=== PATIENT | male | born 1955 | race American Indian/Alaskan Native ===

== ENCOUNTER 2021-08-31 12:32 | Inpatient (IN) | payer SELFPAY ==
[2021-08-31 13:07] LABS: Hematocrit 46.3 % (35.5-45.6); Hemoglobin 15.1 gm/dl (11.8-15.2); Mean Corpuscular HGB Conc 33 % (32-34); Mean Corpuscular Volume 82 fl (84-94); Platelet Count 291 K/mm3 (140-440); Red Blood Count 5.62 M/mm3 (3.65-5.03); Red Cell Distribution Width 15.1 % (13.2-15.2)
--- NOTE | 2021-08-31 13:18 | XRay Report ---
CHEST 2 VIEWS INDICATION / CLINICAL INFORMATION: weakiness. COMPARISON: None available. FINDINGS: SUPPORT DEVICES: None. HEART / MEDIASTINUM: No significant abnormality. LUNGS / PLEURA: Increased interstitial prominence and densities in bilateral lungs without focal cons olidation No pneumothorax. ADDITIONAL FINDINGS: No significant additional findings. IMPRESSION: 1. Increased interstitial prominence could represent interstitial infiltrates in bilateral lungs Signer Name: John Rowley MD Signed: 08/31/2021 1:14 PM Workstation Name: [id number]
[2021-08-31 13:34] LABS: Alanine Aminotransferase 12 units/L (7-56); Albumin 4.7 g/dL (3.9-5); BUN/Creatinine Ratio 7; Blood Urea Nitrogen 11 mg/dL (9-20); Calcium 9.6 mg/dL (8.4-10.2); Hemolysis Index 2
--- NOTE | 2021-08-31 14:21 | Cat Scan Report ---
CT HEAD WITHOUT CONTRAST INDICATION / CLINICAL INFORMATION: unilateral weakness. TECHNIQUE: Axial imaging performed from the skull apex through the skull base without the use of cont rast. Sagittal and coronal reformatted images. All CT scans at this location are performed using CT dose reduction for ALARA by means of automated exposure control. COMPARISON: None available. FINDINGS: CEREBRAL PARENCHYMA: No acute parenchymal abnormality is detected. There is mild cortical volume loss and mild to moderate nonspecific chronic white matter changes. Chronic infarct in the right posterio r watershed region measures up to 3 cm in greatest dimension. A smaller 1.8 cm cortical infarct is id entified in the medial left parietal lobe. A 2 cm chronic cortical infarct is identified in the super ior right frontal lobe. Tiny chronic lacunar infarcts are identified in the right thalamus and right jovanny. HEMORRHAGE: None. EXTRA-AXIAL SPACES: Normal in size and morphology for the patient's age. VENTRICULAR SYSTEM: Normal in size and morphology for the patient's age. MIDLINE SHIFT OR HERNIATION: None. CEREBELLUM / BRAINSTEM: No significant abnormality. CALVARIUM: No significant abnormality. ORBITS: Normal as visualized. PARANASAL SINUSES / MASTOID AIR CELLS: Normal as visualized. SOFT TISSUES of HEAD: No significant abnormality. ADDITIONAL FINDINGS: None. IMPRESSION: No acute intracranial abnormality. Chronic findings as described above. Signer Name: Cayetano Larios Jr, MD Signed: 08/31/2021 2:16 PM Workstation Name: [id number]
[2021-08-31] MEDS ORDERED: CLOPIDOGREL 300 MG TAB PO ONE (15:50)
--- NOTE | 2021-08-31 15:57 | Emergency Department Report ---
HPI - General Chief Complaint: Neuro Symptoms/Deficit Time Seen by Provider: 08/31/21 15:44 - HPI HPI: [facility] The patient is a six 66-year-old male present with a chief complaint of left- sided weakness. The patient states 2 weeks ago he developed weakness in his left upper extremity which has been constant. The patient states 3 days ago he also began to notice weakness in his left lower extremity which is also been constant. Patient denies dysarthria or dysphagia. Patient denies paresthesia. Patient denies headache. ED Past Medical Hx - Past Medical History Previous Medical History?: Yes Hx Hypertension: Yes - Surgical History Past Surgical History?: No - Family History Family history: no significant - Social History Smoking Status: Current Every Day Smoker Substance Use Type: None (Denies illicit drug use), Alcohol (Occasional) ED Review of Systems ROS: Stated complaint: FATIQUE/WEAKNESS Other details as noted in HPI Constitutional: no symptoms reported Eyes: denies: eye pain ENT: denies: throat pain Respiratory: no symptoms reported Cardiovascular: denies: chest pain Endocrine: no symptoms reported Gastrointestinal: denies: abdominal pain Musculoskeletal: denies: back pain Neurological: weakness. denies: headache, paresthesias Physical Exam - Physical Exam Vital Signs: Vital Signs 08/31/21 12:38 Temperature 98.5 F Pulse Rate 90 Respiratory 18 Rate Blood Pressure 180/84 O2 Sat by Pulse 99 Oximetry Physical Exam: GENERAL: The patient is well-developed well-nourished male lying on stretcher not appearing to be in acute distress. [] HEENT: Normocephalic. Atraumatic. Extraocular motions are intact. Patient has moist mucous membranes. NECK: Supple. Trachea midline CHEST/LUNGS: Clear to auscultation. There is no respiratory distress noted. HEART/CARDIOVASCULAR: Regular. There is no tachycardia. There is no gallop rub or murmur. ABDOMEN: Abdomen is soft, nontender. Patient has normal bowel sounds. There is no abdominal distention. SKIN: There is no rash. There is no edema. There is no diaphoresis. NEURO: The patient is awake, alert, and oriented. The patient is cooperative. Cranial nerves II through XII grossly intact with exception of cranial nerve #11 on the left.. The patient has normal speech. Patient is only able to make effort against gravity raise in the left upper extremity off of the bed but not to 45 degree angle before drift. Patient is able to hold left lower extremity at 30 degree angle only for a few seconds (less than 5) before it drifts back to bed. Patient able to hold right lower extremity at 30 degree angle for 5- second count. NIHSS= 6. GCS 15 MUSCULOSKELETAL: There is no evidence of acute injury. ED Course Vital Signs 08/31/21 12:38 Temperature 98.5 F Pulse Rate 90 Respiratory 18 Rate Blood Pressure 180/84 O2 Sat by Pulse 99 Oximetry ED Medical Decision Making - Lab Data Result diagrams: 08/31/21 12:42 08/31/21 12:42 Laboratory Tests 08/31/21 08/31/21 12:42 12:42 WBC 5.1 RBC 5.62 H Hgb 15.1 Hct 46.3 H MCV 82 L MCH 27 L MCHC 33 RDW 15.1 Plt Count 291 Sodium 140 Potassium 3.8 Chloride 104.2 Carbon Dioxide 26 Anion Gap 14 BUN 11 Creatinine 1.6 H Estimated GFR 43 BUN/Creatinine Ratio 7 Glucose 101 H Calcium 9.6 Total Bilirubin 0.30 AST 14 ALT 12 Alkaline Phosphatase 96 Troponin T < 0.010 Total Protein 7.4 Albumin 4.7 Albumin/Globulin Ratio 1.7 - EKG Data -: EKG Interpreted by Me EKG shows normal: sinus rhythm, axis Rate: normal - EKG Data When compared to previous EKG there are: previous EKG unavailable Interpretation: nonspecific ST-T wave meredith, other (No ischemic changes) - Radiology Data Radiology results: report reviewed (CT head), image reviewed (CT head) interpreted by me: Chest x-ray-no definite focal infiltrates, no pneumothorax [facility] [address] [place] [address] Cat Scan Report Signed Patient: MARY GASTON MR#: [id number] : 1955 Acct:[id number] Age/Sex: 66 / M ADM Date: 08/31/21 Loc: ED Attending Dr: Ordering Physician: RICK DODSON Date of Service: 08/31/21 Procedure(s): CT head/brain wo con Accession Number(s): [id number] cc: RICK DODSON CT HEAD WITHOUT CONTRAST INDICATION / CLINICAL INFORMATION: unilateral weakness. TECHNIQUE: Axial imaging performed from the skull apex through the skull base without the use of contrast. Sagittal and coronal reformatted images. All CT scans at this location are performed us ing CT dose reduction for ALARA by means of automated exposure control. COMPARISON: None available. FINDINGS: CEREBRAL PARENCHYMA: No acute parenchymal abnormality is detected. There is mild cortical volume loss and mild to moderate nonspecific chronic white matter changes. Chronic infarct in the right posterior watershed region measures up to 3 cm in greatest dimension. A smaller 1.8 cm cortical infarct is identified in the medial left parietal lobe. A 2 cm chronic cortical infarct is identified in the superior right frontal lobe. Tiny chronic lacunar infarcts are identified in the right thalamus and right jovanny. HEMORRHAGE: None. EXTRA-AXIAL SPACES: Normal in size and morphology for the patient's age. VENTRICULAR SYSTEM: Normal in size and morphology for the patient's age. MIDLINE SHIFT OR HERNIATION: None. CEREBELLUM / BRAINSTEM: No significant abnormality. CALVARIUM: No significant abnormality. ORBITS: Normal as visualized. PARANASAL SINUSES / MASTOID AIR CELLS: Normal as visualized. SOFT TISSUES of HEAD: No significant abnormality. ADDITIONAL FINDINGS: None. IMPRESSION: No acute intracranial abnormality. Chronic findings as described above. Signer Name: Cayetano Larios Jr, MD Signed: 08/31/2021 2:16 PM Workstation Name: [id number] Transcribed By: TTR Dictated By: CAYETANO LARIOS JR, MD Electronically Authenticated By: CAYETANO LARIOS JR, MD Signed Date/Time: 08/31/211415 DD/ 14 TD/TT: [facility] [address] [place] [address] XRay Report Signed Patient: MARY GASTON MR#: [id number] : 1955 Acct:[id number] Age/Sex: 66 / M ADM Date: 08/31/21 Loc: ED Attending Dr: Ordering Physician: RICK DODSON Date of Service: 08/31/21 Procedure(s): XR chest routine 2V Accession Number(s): [id number] cc: RICK DODSON Fluoro Time In Minutes: CHEST 2 VIEWS INDICATION / CLINICAL INFORMATION: weakiness. COMPARISON: None available. FINDINGS: SUPPORT DEVICES: None. HEART / MEDIASTINUM: No significant abnormality. LUNGS / PLEURA: Increased interstitial prominence and densities in bilateral lungs without focal consolidation No pneumothorax. ADDITIONAL FINDINGS: No significant additional findings. IMPRESSION: 1. Increased interstitial prominence could represent interstitial infiltrates in bilateral lungs Signer Name: John Rowley MD Signed: 08/31/2021 1:14 PM Workstation Name: [id number] Transcribed By: CW Dictated By: DEQUAN ROWLEY MD Electronically Authenticated By: DEQUAN ROWLEY MD Signed Date/Time: 08/31/211313 DD/ 12 TD/TT: - Differential Diagnosis CVA Critical care attestation.: If time is entered above; I have spent that time in minutes in the direct care of this critically ill patient, excluding procedure time. ED Disposition Clinical Impression: CVA (cerebral vascular accident) Disposition: 09 ADMITTED INPATIENT Is pt being admited?: Yes Does the pt Need Aspirin: No Condition: Fair Time of Disposition: 15:59 (Care transferred to hospitalist (Dr. Berger))
--- NOTE | 2021-08-31 16:00 | History and Physical Report ---
History of Present Illness Chief complaint: I am weak, left side History of present illness: 66 YO Male with Nicotine Dependence, HTN presents to ED for evaluation. Patient reports "I feel weak, left side". Patient states that he experienced sudden onset left arm weakness 3 weeks ago. Patient states that he ignored the symptoms and thought that it would get better. Patient reports difficulty grasping objects in his left hand and maintaining objects in his left hand. Patient also reports new onset weakness in his left leg over the past 3 days with persistent and worsening symptoms over the same timeframe. Patient family urged him to seek medical care. Patient transported to [facility] via private vehicle for further care and evaluation of the aforementioned symptoms. The patient was seen and evaluated in the emergency department. All lab and imaging studies reviewed. The patient was found to have a focal neurologic deficit at the time of his arrival. A code stroke was called and the patient was initiated on CVA protocol and admitted to medical floor due to increased risk of worsening symptoms. Teleneurology consulted. Patient deemed outside the window for tPA. Patient denies fever, chills, chest pain, palpitation productive cough, trauma, skin rash, recent contact, known exposure to COVID-19. No prior admission for review. No medication listed at time of admission for reconciliation. Advanced care planning conducted in ED. Past History Past Medical History: hypertension, other (See HPI) Past Surgical History: No surgical history, Other (Reviewed) Social history: smoking Family history: hypertension Medications and Allergies Allergies Allergy/AdvReac Type Severity Reaction Status Date / Time No Known Allergies Allergy Verified 08/31/21 12:37 Review of Systems Constitutional: no weight loss, no weight gain, no chills Ears, nose, mouth and throat: no ear pain, no tinnitis, no nose pain, no nasal congestion, no nasal discharge Cardiovascular: no chest pain, no orthopnea, no rapid/irregular heart beat, no syncope Respiratory: no cough, no cough with sputum Gastrointestinal: no abdominal pain, no nausea, no diarrhea, no hematemesis Genitourinary Male: no hematuria, no flank pain, no discharge, no urinary frequency, no urinary hesitancy Rectal: no pain, no incontinence, no bleeding Musculoskeletal: no neck stiffness, no neck pain, no shooting arm pain, no arm numbness/tingling, no low back pain, no shooting leg pain, no leg numbness/tingling Integumentary: no rash, no pruritis, no redness, no sores, no jaundice, no boils Neurological: weakness, lack of coordination, balance difficulties, gait dysfunction, motor disturbance, no head injury, no headaches, no migraines Psychiatric: no anxiety, no memory loss, no change in sleep habits, no sleep disturbances, no hypersomnia, no change in appetite, no disorientation Endocrine: no cold intolerance, no heat intolerance, no excessive thirst Hematologic/Lymphatic: no easy bruising, no easy bleeding Allergic/Immunologic: no urticaria, no allergic rhinitis, no wheezing Exam - Constitutional Vitals: Temp Pulse Resp BP Pulse Ox 98.5 F 90 18 180/84 99 08/31/21 12:38 08/31/21 12:38 08/31/21 12:38 08/31/21 12:38 08/31/21 12:38 General appearance: Present: mild distress - EENT Eyes: Present: PERRL ENT: hearing intact, clear oral mucosa - Neck Neck: Present: supple, normal ROM - Respiratory Respiratory effort: normal Respiratory: bilateral: CTA - Cardiovascular Heart Sounds: Present: S1 & S2. Absent: rub, click - Extremities Extremities: pulses symmetrical, No edema Peripheral Pulses: within normal limits - Abdominal General gastrointestinal: Present: soft, non-tender, non-distended, normal bowel sounds Male genitourinary: Present: normal - Integumentary Integumentary: Present: clear, warm, dry - Musculoskeletal Musculoskeletal: left sided weakness - Psychiatric Psychiatric: appropriate mood/affect, intact judgment & insight - Neurologic Neurologic: CNII-XII intact, moves all extremities, no gait normal HEART Score - HEART Score Troponin: Troponin T < 0.010 ng/mL (0.00-0.029) 08/31/21 12:42 Results - Labs CBC & Chem 7: 08/31/21 12:42 08/31/21 12:42 Labs: Abnormal lab results 08/31/21 08/31/21 Range/Units 12:42 12:42 RBC 5.62 H (3.65-5.03) M/mm3 Hct 46.3 H (35.5-45.6) % MCV 82 L (84-94) fl MCH 27 L (28-32) pg Creatinine 1.6 H (0.8-1.3) mg/dL Glucose 101 H (75-100) mg/dL Assessment and Plan - Patient Problems (1) CVA (cerebral vascular accident) Status: Acute Plan to address problem: CVA protocol: CT head, neuro check, seizure precautions, aspiration precautions, fall precaution, antiplatelet therapy, carotid Doppler, physical therapy consulted, Occupational Therapy consulted, speech therapy consulted, patient passed bedside swallow evaluation, lipid panel, statin therapy. (2) Accelerated hypertension Status: Acute Plan to address problem: Monitor blood pressure every shift, permissive hypertension overnight. (3) Nicotine dependence Status: Acute Qualifiers: Nicotine product type: cigarettes Substance use status: in withdrawal Qualified Code(s): F17.213 - Nicotine dependence, cigarettes, with withdrawal Plan to address problem: Smoking cessation counseling, supportive care, behavior change counseling, +15 minutes. (4) DVT prophylaxis Status: Acute Plan to address problem: SCD to bilateral lower extremities while in bed (5) Advance care planning Status: Acute Plan to address problem: Disease education data, care plan discussed, diagnoses discussed, prognosis discussed, patient is full code. Patient knowledges understanding and agreement with care plan, +30 minutes. (6) Preventative health care Status: Acute Plan to address problem: Patient counseled regarding smoking cessation, balanced diet, risk factor reduction. Patient counseled to follow-up with his primary care physician for both age and risk factor appropriate screening test.
[2021-08-31] MEDS ORDERED: PROMETHAZINE 25 MG RECT SUPP PR PRN (16:01)
[2021-08-31] MEDS ORDERED: HYDROmorphone 1 MG/1 ML INJ IV PRN (16:01)
[2021-08-31] MEDS ORDERED: METOCLOPRAMIDE 10 MG TAB PO PRN (16:01)
[2021-08-31] MEDS ORDERED: ALBUTEROL 2.5 MG/3 ML NEBU IH PRN (16:01)
[2021-08-31] MEDS ORDERED: MAGNESIUM HYDROXIDE (MOM) ORAL LIQD UDC PO PRN (16:01)
[2021-08-31] MEDS ORDERED: ONDANSETRON 4 MG/2 ML INJ IV PRN (16:01)
--- NOTE | 2021-08-31 17:42 | Vascular Lab Report ---
DUPLEX DOPPLER ULTRASOUND CAROTID, BILATERAL INDICATION / CLINICAL INFORMATION: stroke. COMPARISON: None available. FINDINGS: RIGHT CAROTID: - PLAQUE ESTIMATE (%): < 50% - CCA velocity: 56 cm/sec. - ICA peak systolic velocity: 20 cm/sec. - ICA/CCA PSV Ratio: 0.4 Right Vertebral Artery: Antegrade flow. LEFT CAROTID: - PLAQUE ESTIMATE (%): < 50% - CCA velocity: 75 cm/sec. - ICA peak systolic velocity: 72 cm/sec. - ICA/CCA PSV Ratio: 0.96 Left Vertebral Artery: Antegrade flow. IMPRESSION: 1. Right Internal Carotid Artery: No discrete significant stenosis is identified in the imaged portio n of the internal carotid artery. There are low velocities with somewhat stagnant appearing flow note d in the right internal carotid artery. The appearance is concerning for downstream severe stenosis o r occlusion. Additional imaging with CT or MRI is recommended to further evaluate. 2. Left Internal Carotid Artery: Less than 50% diameter stenosis. IMPORTANT FINDING: Technologist relayed the results Time of Communication (ROOF TILE LAYER/CDT): 7085 Licensed Practitioner Receiving Report: Patient's nurseElina Velocity criteria are extrapolated from diameter data as defined by the Society of Radiologists in Ul trasound Consensus Conference, Radiology 2003; 229;340-346. NO STENOSIS (NORMAL) - Plaque = none; ICA PSV < 125 cm/sec; ICA/CCA PSV Ratio < 2.0 <50% STENOSIS - Plaque < 50%; ICA PSV < 125 cm/sec; ICA/CCA PSV Ratio < 2.0 50-69% STENOSIS - Plaque > 50%; ICA PSV = 125-230 cm/sec; ICA/CCA PSV Ratio = 2.0-4.0 >70% BUT <100% STENOSIS - Plaque > 50%; ICA PSV > 230 cm/sec; ICA/CCA PSV Ratio > 4.0 NEAR OCCLUSION - Plaque = visible lumen; ICA PSV = high/low/none; ICA/CCA PSV Ratio = variable TOTAL OCCLUSION - Plaque = no lumen; ICA PSV = none; ICA/CCA PSV Ratio = N/A Signer Name: Dominic Diop MD Signed: 08/31/2021 5:38 PM Workstation Name: [id number]
[2021-09-01 07:43] LABS: Chol/HDL Ratio 3.8 %
[2021-09-01] MEDS: ASPIRIN 325 MG TAB PO SCH (10:11)
--- NOTE | 2021-09-01 11:32 | Consultation ---
History of Present Illness Consult date: 09/01/21 Reason for Consult: left side weakness,hypertensive emergency History of present illness: I am weak, left side History of present illness: 66 YO Male with Nicotine Dependence, HTN presents to ED for evaluation. Patient reports "I feel weak, left side". Patient states that he experienced sudden onset left arm weakness 3 weeks ago. Patient states that he ignored the symptoms and thought that it would get better. Patient reports difficulty grasping objects in his left hand and maintaining objects in his left hand. Patient also reports new onset weakness in his left leg over the past 3 days with persistent and worsening symptoms over the same timeframe. Patient family urged him to seek medical care. Patient transported to [facility] via private vehicle for further care and evaluation of the aforementioned symptoms. The patient was seen and evaluated in the emergency department. All lab and imaging studies re viewed. The patient was found to have a focal neurologic deficit at the time of his arrival. A code stroke was called and the patient was initiated on CVA protocol and admitted to medical floor due to increased risk of worsening symptoms. Teleneurology consulted. Patient deemed outside the window for tPA. Patient denies fever, chills, chest pain, palpitation productive cough, trauma, skin rash, recent contact, known exposure to COVID-19. No prior admission for review. No medication listed at time of admission for reconciliation. Advanced care planning conducted in ED. pt. evaluated today he is with significant left side weakness ,eating his lunch according to him he takes no medications , he smokes and ping drinker. In ER CT brain is unremarkable LDL#168 in ER he was given 300 mg Plavix plus ASA 325 mg Initial Bp#2008/ Past History Past Medical History: hypertension, other (See HPI) Past Surgical History: No surgical history, Other (Reviewed) Social history: smoking Family history: hypertension Medications and Allergies Allergies Allergy/AdvReac Type Severity Reaction Status Date / Time No Known Allergies Allergy Verified 08/31/21 12:37 Review of Systems Constitutional: no weight loss, no weight gain, no chills Ears, nose, mouth and throat: no ear pain, no tinnitis, no nose pain, no nasal congestion, no nasal discharge Cardiovascular: no chest pain, no orthopnea, no rapid/irregular heart beat, no syncope Respiratory: no cough, no cough with sputum Gastrointestinal: no abdominal pain, no nausea, no diarrhea, no hematemesis Genitourinary Male: no hematuria, no flank pain, no discharge, no urinary frequency, no urinary hesitancy Rectal: no pain, no incontinence, no bleeding Musculoskeletal: no neck stiffness, no neck pain, no shooting arm pain, no arm numbness/tingling, no low back pain, no shooting leg pain, no leg numbness/tingling Integumentary: no rash, no pruritis, no redness, no sores, no jaundice, no boils Neurological: weakness, lack of coordination, balance difficulties, gait dysfunction, motor disturbance, no head injury, no headaches, no migraines Psychiatric: no anxiety, no memory loss, no change in sleep habits, no sleep disturbances, no hypersomnia, no change in appetite, no disorientation Endocrine: no cold intolerance, no heat intolerance, no excessive thirst Hematologic/Lymphatic: no easy bruising, no easy bleeding Allergic/Immunologic: no urticaria, no allergic rhinitis, no wheezing Past History Past Medical History: hypertension, other (See HPI) Past Surgical History: No surgical history, Other (Reviewed) Social history: smoking Family history: hypertension Medications and Allergies Allergies Allergy/AdvReac Type Severity Reaction Status Date / Time No Known Allergies Allergy Verified 08/31/21 12:37 Home Medications Medication Instructions Recorded Confirmed Last Taken Type No Known Home Medications [No 09/01/21 09/01/21 Unknown History Reported Home Medications] Active Meds: Active Medications Acetaminophen (Acetaminophen 325 Mg Tab) 650 mg PO Q4H PRN PRN Reason: Pain, Mild (1-3) Albuterol (Albuterol 2.5 Mg/3 Ml Nebu) 2.5 mg IH Q3HRT PRN PRN Reason: Shortness Of Breath Aspirin (Aspirin 325 Mg Tab) 325 mg PO QDAY [facility] Last Admin: 09/01/21 10:11 Dose: 325 mg Atorvastatin Calcium (Atorvastatin 40 Mg Tab) 80 mg PO QHS WOJCIECH Bisacodyl (Bisacodyl 10 Mg Rect Supp) 10 mg MS QDAY PRN PRN Reason: Constipation Hydromorphone HCl (Hydromorphone 1 Mg/1 Ml Inj) 0.5 mg IV Q23H PRN PRN Reason: Pain , Severe (7-10) Magnesium Hydroxide (Magnesium Hydroxide (Mom) Oral Liqd Udc) 30 ml PO Q4H PRN PRN Reason: Constipation Metoclopramide HCl (Metoclopramide 10 Mg Tab) 10 mg PO Q6H PRN PRN Reason: Nausea And Vomiting Ondansetron HCl (Ondansetron 4 Mg/2 Ml Inj) 4 mg IV Q8H PRN PRN Reason: Nausea And Vomiting Oxycodone/Acetaminophen (Oxycodone /Acetaminophen 5-325mg Tab) 1 tab PO Q16H PRN PRN Reason: Pain, Moderate (4-6) Promethazine HCl (Promethazine 25 Mg Rect Supp) 25 mg MS Q6H PRN PRN Reason: Nausea And Vomiting Sodium Chloride (Sodium Chloride 0.9% 10 Ml Flush Syringe) 10 ml IV PRN PRN PRN Reason: LINE FLUSH Physical Examination - Vital Signs Vital Signs: Vital Signs Temp Pulse Resp BP Pulse Ox 98.5 F 90 18 180/84 99 08/31/21 12:38 08/31/21 12:38 08/31/21 12:38 08/31/21 12:38 08/31/21 12:38 - Constitutional General appearance: comfortable - EENT EENT: Present: PERRL, mucous membranes moist - Respiratory Respiratory: Present: chest non-tender, lungs clear, rhonchi - Cardiovascular Cardiovascular: Present: regular rate, normal S1, normal S2 Extremities: Present: no peripheral edema bilatateraly, no clubbing, cyanosis - Gastrointestinal Gastrointestinal: Present: normoactive bowel sounds - Integumentary Integumentary: Present: normal - Neurologic Cranial nerve examination: PERRL, EOMI, intact, facial droop Speech examination: intact Sensorimotor examination: intact Detailed motor examination: other (left upper 1/5 left lower3/5 ,planter is down going , no sensory deficit , reflexes are suppressed, gait not done) - Psychiatric Psychiatric: Present: other (he is oriented to place not date , knows his name and birthday ,) - Level of Consciousness 1a. Level of Consciousness: alert/keenly responsive - LOC Questions 1b. LOC Questions: answers both correctly - LOC Command 1c. LOC Commands: performs tasks correctly - Best Gaze 2. Best Gaze: normal - Visual 3. Visual: no visual loss - Facial Palsy 4. Facial Palsy: minor paralysis - Motor Arm 5a. Motor Arm Left: no gravity effort 5b. Motor Arm Right: no drift - Motor Leg 6a. Motor Leg Left: some gravity effort 6b. Motor Leg Right: no drift - Limb Ataxia 7. Limb Ataxia: absent - Sensory 8. Sensory: normal - Best Language 9. Best Language: no aphasia - Dysarthria 10. Dysarthria: normal - Extinction and Inattention 11. Extinction/Inattention: no abnormality - Scoring Total Score: 6 Stroke Severity: Moderate Stroke Results - Laboratory Findings CBC and BMP: 08/31/21 12:42 08/31/21 12:42 Abnormal Lab Findings: Abnormal Labs 08/31/21 08/31/21 09/01/21 12:42 12:42 06:07 RBC 5.62 H Hct 46.3 H MCV 82 L MCH 27 L Creatinine 1.6 H Glucose 101 H Cholesterol 240 H LDL Cholesterol Direct 168 H HDL Cholesterol 63 H Assessment and Plan Assessment and Plan 66 YO Male with Nicotine Dependence, HTN presents to ED for evaluation. Patient reports "I feel weak, left side". Patient states that he experienced sudden onset left arm weakness 3 weeks ago. Patient states that he ignored the symptoms and thought that it would get better. Patient reports difficulty grasping objects in his left hand and maintaining objects in his left hand. Patient also reports new onset weakness in his left leg over the past 3 days with persistent and worsening symptoms over the same timeframe. - Patient Problems # Progressive left side weakness over the last 3 weeks -R/O CVA (cerebral vascular accident) -CT brain is unremarkable -CTA brain and neck not done -Creatinine #1.6 -MRI brain is pending -NIH today #6 -echo is pending -LDL#168 -A1C is pending -started on Plavix 300 mg once then ASA 325 mg daily -Lipitor increased to 80 mg daily -Pt/ST evaluate # Accelerated hypertension -Monitor blood pressure every shift, permissive hypertension overnight. -Initial BP 209/90 -control BP<150/90 # Renal insufficiency -BUn/Cr#11/1.6 -hydrate before CTA and after -monitor renal function #Poor compliance with medications -According to pt. he takes no medications at home with poor medical follow up # Nicotine dependence -Smoking cessation counseling, supportive care, behavior change counseling, +15 minutes. # Ping alcoholic drinker -according to pt. last drink was 3 weeks ago -Dt precaution -UDS # DVT prophylaxis -SCD to bilateral lower extremities while in bed will follow
--- NOTE | 2021-09-01 13:07 | Progress Note ---
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 Patient states that he ignored the symptoms and thought that it would get better. Patient reported difficulty grasping objects in his left hand and maintaining objects in his left hand. 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 All lab and imaging studies reviewed. The patient was found to have a focal neurologic deficit at the time of his arrival. A code stroke was called and the patient was initiated on CVA protocol and admitted to medical floor due to increased risk of worsening symptoms. Teleneurology consulted. Patient de emed outside the window for tPA. Acute CVA Accelerated hypertension Acute kidney injury on probable CKD Medical noncompliance Tobacco abuse EtOH abuse 09/01/2021. CT of the brain is unremarkable. Await CTA of the brain and neck and MRI. Neurology following. Follow-up echocardiogram. Patient started on Plavix and aspirin. Lipitor increased to 80 mg daily. Await PT/ST evaluation. Patient received permissive hypertension overnight. We will start Procardia 30 mg p.o. twice daily. History Interval history: No new issues overnight Hospitalist Physical - Constitutional Vitals: Temp Pulse Resp BP Pulse Ox 98.5 F 79 16 178/87 100 09/01/21 12:39 09/01/21 12:39 09/01/21 12:39 09/01/21 12:39 09/01/21 12:39 General appearance: Present: no acute distress - EENT Eyes: Present: PERRL, EOM intact ENT: hearing intact, clear oral mucosa, dentition normal - Neck Neck: Present: supple, normal ROM - Respiratory Respiratory effort: normal Respiratory: bilateral: CTA - Cardiovascular Rhythm: regular Heart Sounds: Present: S1 & S2. Absent: gallop, rub - Extremities Extremities: no ischemia, No edema, Full ROM - Abdominal General gastrointestinal: soft, non-tender, non-distended, normal bowel sounds - Integumentary Integumentary: Present: clear, warm, dry - Neurologic Neurologic: CNII-XII intact, moves all extremities HEART Score - HEART Score Troponin: Troponin T < 0.010 ng/mL (0.00-0.029) 08/31/21 12:42 Results - Labs CBC & Chem 7: 08/31/21 12:42 08/31/21 12:42 Labs: Laboratory Last Values WBC 5.1 K/mm3 (4.5-11.0) 08/31/21 12:42 RBC 5.62 M/mm3 (3.65-5.03) H 08/31/21 12:42 Hgb 15.1 gm/dl (11.8-15.2) 08/31/21 12:42 Hct 46.3 % (35.5-45.6) H 08/31/21 12:42 MCV 82 fl (84-94) L 08/31/21 12:42 MCH 27 pg (28-32) L 08/31/21 12:42 MCHC 33 % (32-34) 08/31/21 12:42 RDW 15.1 % (13.2-15.2) 08/31/21 12:42 Plt Count 291 K/mm3 (140-440) 08/31/21 12:42 Sodium 140 mmol/L (137-145) 08/31/21 12:42 Potassium 3.8 mmol/L (3.6-5.0) 08/31/21 12:42 Chloride 104.2 mmol/L (98-107) 08/31/21 12:42 Carbon Dioxide 26 mmol/L (22-30) 08/31/21 12:42 Anion Gap 14 mmol/L 08/31/21 12:42 BUN 11 mg/dL (9-20) 08/31/21 12:42 Creatinine 1.6 mg/dL (0.8-1.3) H 08/31/21 12:42 Estimated GFR 43 ml/min 08/31/21 12:42 BUN/Creatinine Ratio 7 % 08/31/21 12:42 Glucose 101 mg/dL (75-100) H 08/31/21 12:42 Calcium 9.6 mg/dL (8.4-10.2) 08/31/21 12:42 Total Bilirubin 0.30 mg/dL (0.1-1.2) 08/31/21 12:42 AST 14 units/L (5-40) 08/31/21 12:42 ALT 12 units/L (7-56) 08/31/21 12:42 Alkaline Phosphatase 96 units/L (35-129) 08/31/21 12:42 Troponin T < 0.010 ng/mL (0.00-0.029) 08/31/21 12:42 Total Protein 7.4 g/dL (6.3-8.2) 08/31/21 12:42 Albumin 4.7 g/dL (3.9-5) 08/31/21 12:42 Albumin/Globulin Ratio 1.7 % 08/31/21 12:42 Triglycerides 63 mg/dL (2-149) 09/01/21 06:07 Cholesterol 240 mg/dL (50-199) H 09/01/21 06:07 LDL Cholesterol Direct 168 mg/dL (50-130) H 09/01/21 06:07 HDL Cholesterol 63 mg/dL (40-59) H 09/01/21 06:07 Cholesterol/HDL Ratio 3.80 % 09/01/21 06:07 Brian/IV: Voiding Method Condom Catheter Active Medications - Current Medications Current Medications: Generic Name Dose Route Start Last Admin Trade Name Freq PRN Reason Stop Dose Admin Acetaminophen 650 mg 08/31/21 16:01 Acetaminophen 325 Mg Tab PO Q4H PRN Pain, Mild (1-3) Albuterol 2.5 mg 08/31/21 16:01 Albuterol 2.5 Mg/3 Ml Nebu IH Q3HRT PRN Shortness Of Breath Aspirin 325 mg 09/01/21 10:00 09/01/21 10:11 Aspirin 325 Mg Tab PO 325 mg QDAY WOJCIECH Administration Atorvastatin Calcium 80 mg 09/01/21 22:00 Atorvastatin 40 Mg Tab PO QHS WOJCIECH Bisacodyl 10 mg 08/31/21 16:01 Bisacodyl 10 Mg Rect Supp PA QDAY PRN Constipation Hydromorphone HCl 0.5 mg 08/31/21 16:01 Hydromorphone 1 Mg/1 Ml Inj IV Q23H PRN Pain , Severe (7-10) Magnesium Hydroxide 30 ml 08/31/21 16:01 Magnesium Hydroxide (Mom) Oral Liqd Udc PO Q4H PRN Constipation Metoclopramide HCl 10 mg 08/31/21 16:01 Metoclopramide 10 Mg Tab PO Q6H PRN Nausea And Vomiting Ondansetron HCl 4 mg 08/31/21 16:01 Ondansetron 4 Mg/2 Ml Inj IV Q8H PRN Nausea And Vomiting Oxycodone/Acetaminophen 1 tab 08/31/21 16:01 Oxycodone /Acetaminophen 5-325mg Tab PO Q16H PRN Pain, Moderate (4-6) Promethazine HCl 25 mg 08/31/21 16:01 Promethazine 25 Mg Rect Supp PA Q6H PRN Nausea And Vomiting Sodium Chloride 10 ml 08/31/21 16:01 Sodium Chloride 0.9% 10 Ml Flush Syringe IV PRN PRN LINE FLUSH Nutrition/Malnutrition Assess - Dietary Evaluation Nutrition/Malnutrition Findings: Nutrition Notes Start: 09/01/21 12:33 Freq: Status: Active Protocol: Document 09/01/21 12:33 JESSICA (Rec: 09/01/21 12:53 JESSICA [id number]) Nutrition Notes 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 Labs/Tests 09/01: Crea 1.6, Glu 101. Pertinent Medications 09/01: Nutritionally unremarkable. 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 Weight Status Overweight Subjective/Other Information RD consult for skin risk assessment. No reports available on Pt's PO intake of meals at the time , but mentioned that Pt was eating his luch without any problem, according to Progress notes. Bedside swallow evaluation passed, according to RN jeniffer. RN note on 09/01/21 10:15: pt. has no problem swallowing tolerated food well. Pt is on Room Air, O2 saturation @ 100%, according to Physical Assessment History notes. Pt has missing teeth, according to Physical Assessment History notes. Pt shows no signs of concern for skin risk at the time, according to Physical Assessment History notes. Percent of energy/protein needs met: Prescribed Regular Diet provides for energy/protein needs (2,289 Kcal/89 g) during LOS. Burn Absent Trauma Absent GI Symptoms Nausea,Vomiting Food Allergy No Skin Integrity/Comment Assessment WNL. Minimum of two criteria No #1 Nutrition Diagnosis No nutrition diagnosis at this time Is patient on ventilator? No Is Patient Ambulatory and/or Out of Bed Yes REE-([place]-St. Jeor-ambulatory/OOB) [ 1941.719 [id number]] Kcal/Kg value to use for calculation 23 Approximate Energy Requirements Using 1737 kcal/Kg Calculation Used for Recommendations Kcal/kg Additional Notes Protein: 0.8-1.2 g/Kg ABW; 61- 91 g/day. Fluids: 1 ml/Kcal, or as per MD. Nutrition Intervention Change Diet Order: Continue Regular Diet. Revisit per MD consult or patient Sign Off request: Additional Comments Continue monitoring food tolerance, %PO intake of meals , and BM.
[2021-09-01] MEDS: hydrALAZINE 20 MG/1 ML INJ IV PRN (15:42)
[2021-09-01 17:44] LABS: Bilirubin,Urine NEG (Negative); Blood,Urine NEG (Negative); Color,Urine Straw (Yellow); Mucus,Urine FEW /HPF; Protein,Urine <15 mg/dL mg/dL (Negative); RBC,Urine < 1.0 /HPF (0.0-6.0); Urobilinogen,Urine < 2.0 mg/dL (<2.0)
[2021-09-01 17:47] LABS: WBC,Urine < 1.0 /HPF (0.0-6.0)
--- NOTE | 2021-09-01 18:29 | Cat Scan Report ---
CT angio neck INDICATION / CLINICAL INFORMATION: 66 years Male; cva. TECHNIQUE: Thin cut axial images obtained through the head during IV bolus contrast administration. S agittal, coronal, and 3 plane MIP reconstructions performed by the technologist. NASCET type criteria used evaluate stenoses. All CT scans at this location are performed using CT dose reduction for ALAR A by means of automated exposure control. Motion artifact present. COMPARISON: None available. FINDINGS: ARCH: Normal aortic arch branching suggested. CAROTID ARTERIES: The visualized common and internal carotid arteries are widely patent. Note, a portion of the RCCA is not well visualized because of streak artifact from dense contrast in the adjacent brachiocephalic/internal jugular vein. The remainder of the RCCA is widely patent. The R ICA is occluded near its origin. Findings may be related to a dissection, given the appearance of the findings in the bulb of the R ICA. There is no evidence of flow in the R ICA until the communi cating portion of the vessel is seen, distally. The LCCA and extracranial L ICA are within normal limits. VERTEBRAL ARTERIES: Right dominant vertebral system seen. Mild narrowing is seen at the origin of the right vertebral artery related to atherosclerotic disease. Moderate to high-grade narrowing suggeste d at the origin of the nondominant left vertebral artery, secondary to atherosclerosis. Extracranial vertebral arteries are otherwise normal in appearance. ADDITIONAL FINDINGS: There are somewhat of an irregular appearance of the esophagus in the upper ches t. Esophagram may be of benefit to exclude the possibility of an underlying lesion in this region. Th is finding is seen approximately at the level of the main pulmonary artery and ac. Emphysematous changes seen in the lung apices. Disc space narrowing seen at C5-6. Mild disc disease seen at multiple levels. No definitive signs of significant canal stenosis. Mild to moderate osseous foraminal narrowing seen on the right at C3-4 an d C5-6 from facet and/or uncinate hypertrophy. Similar findings seen on the left at C2-3 and C5-6. Poor dentition noted. IMPRESSION: 1. 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 2. Significant narrowing seen at the origin of both vertebral arteries, as described above. 3. Esophagram may be of benefit, if clinically warranted. Signer Name: Osmel Main MD, III Signed: 09/01/2021 6:25 PM Workstation Name: [email or web address]
--- NOTE | 2021-09-01 18:51 | Cat Scan Report ---
CT angio head INDICATION / CLINICAL INFORMATION: 66 years Male; CVA. TECHNIQUE: Thin cut axial images obtained through the head during IV bolus contrast administration. S agittal, coronal, and 3 plane MIP reconstructions performed by the technologist. NASCET type criteria used evaluate stenoses. Automated exposure control utilized for radiation reduction purposes. . Sign ificant motion artifact. COMPARISON: None available. FINDINGS: INTERNAL CAROTID ARTERIES: Concerning the left ICA, there are areas of moderate narrowing seen in the cavernous and communicating portions of this vessel. Concerning the right ICA, the vessel is occluded until there is reconstitution until the communicatin g segment (most distal) of the vessel. Both the right A1 and posterior communicating arteries are pat ent. VERTEBROBASILAR SYSTEM: Right vertebral artery is dominant when compared with the left. The left larg silvano terminates in the left PICA territory with a small branch extending towards the basilar artery. The basilar artery is somewhat diminutive in size, with no significant stenosis seen. DISTAL BRANCHES: Distal branches of the anterior and posterior cerebral arteries are fairly symmetric in appearance and number. Right MCA territory demonstrates decreased flow, most likely because of findings concerning the R ICA , described above. No definitive signs of large vessel occlusion in this region, however. 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 Areas of mild-to -moderate narrowing are seen in the MCA branches bilaterally, as well. The smooth tapering seen in th shane peripheral branches might raise the question of a vasculitis. ANEURYSM: None identified. ADDITIONAL FINDINGS: Remainder of the surrounding soft tissues are grossly normal. IMPRESSION: 1. The R ICA is occluded, as described above with reconstitution noted distally. There is also relati ve decreased flow in the right MCA territory, when compared with the left, secondary to this finding. 2. Areas of smooth tapering seen throughout more peripheral branches. Vasculitis might be a considera tion. Signer Name: Osmel Main MD, III Signed: 09/01/2021 6:46 PM Workstation Name: [id number]
[2021-09-01] MEDS: NIFEdipine XL 30 MG TAB PO SCH (22:48)
[2021-09-02] MEDS: oxyCODONE /ACETAMINOPHEN 5-325MG TAB PO PRN ×2 (02:35→14:22)
[2021-09-02] MEDS: ASPIRIN 325 MG TAB PO SCH (09:45)
[2021-09-02] MEDS: NIFEdipine XL 30 MG TAB PO SCH ×2 (09:47→21:58)
--- NOTE | 2021-09-02 10:36 | Progress Note ---
Assessment and Plan Assessment and plan: 66 YO Male with Nicotine Dependence, HTN presents to ED for evaluation of sudden onset left arm weakness 3 weeks ago [employer]. Patient states that he ignored the symptoms and thought that it would get better. Patient reported difficulty grasping objects in his left hand and maintaining objects in his left hand. Patient also reported new onset weakness in his left leg over the past 3 days [employer]. All lab and imaging studies reviewed. The patient was found to have a focal neurologic deficit at the time of his arrival. A code stroke was called and the patient was initiated on CVA protocol and admitted to medical floor due to increased risk of worsening symptoms. Teleneurology consulted. Patient de emed outside the window for tPA. Acute CVA Accelerated hypertension Acute kidney injury on probable CKD Medical noncompliance Tobacco abuse EtOH abuse 09/01/2021. CT of the brain is unremarkable. Await CTA of the brain and neck and MRI. Neurology following. Follow-up echocardiogram. Patient started on Plavix and aspirin. Lipitor increased to 80 mg daily. Await PT/ST evaluation. Patient received permissive hypertension overnight. We will start Procardia 30 mg p.o. twice daily. 09/02/2021. CTA of head/neck neck reveals occluded right ICA which may be secondary to dissection. Patient also has decreased flow in the right MCA territory. Significant narrowing seen at the origin of both vertebral arteries. Also, some irregularity of the esophagus with recommendations for esophagram. Follow-up MRI. We will consult vascular surgery for further evaluation. Neurology following History Interval history: No new issues overnight Hospitalist Physical - Constitutional Vitals: Temp Pulse Resp BP Pulse Ox 98.2 F 77 16 153/65 99 09/02/21 05:01 09/02/21 09:50 09/02/21 09:50 09/02/21 09:50 09/02/21 09:50 General appearance: Present: no acute distress - EENT Eyes: Present: PERRL, EOM intact ENT: hearing intact, clear oral mucosa, dentition normal - Neck Neck: Present: supple, normal ROM - Respiratory Respiratory effort: normal Respiratory: bilateral: CTA - Cardiovascular Rhythm: regular Heart Sounds: Present: S1 & S2. Absent: gallop, rub - Extremities Extremities: no ischemia, No edema, Full ROM - Abdominal General gastrointestinal: soft, non-tender, non-distended, normal bowel sounds - Integumentary Integumentary: Present: clear, warm, dry - Neurologic Neurologic: CNII-XII intact, moves all extremities HEART Score - HEART Score Troponin: Troponin T < 0.010 ng/mL (0.00-0.029) 08/31/21 12:42 Results - Labs CBC & Chem 7: 08/31/21 12:42 08/31/21 12:42 Labs: Laboratory Last Values WBC 5.1 K/mm3 (4.5-11.0) 08/31/21 12:42 RBC 5.62 M/mm3 (3.65-5.03) H 08/31/21 12:42 Hgb 15.1 gm/dl (11.8-15.2) 08/31/21 12:42 Hct 46.3 % (35.5-45.6) H 08/31/21 12:42 MCV 82 fl (84-94) L 08/31/21 12:42 MCH 27 pg (28-32) L 08/31/21 12:42 MCHC 33 % (32-34) 08/31/21 12:42 RDW 15.1 % (13.2-15.2) 08/31/21 12:42 Plt Count 291 K/mm3 (140-440) 08/31/21 12:42 Sodium 140 mmol/L (137-145) 08/31/21 12:42 Potassium 3.8 mmol/L (3.6-5.0) 08/31/21 12:42 Chloride 104.2 mmol/L (98-107) 08/31/21 12:42 Carbon Dioxide 26 mmol/L (22-30) 08/31/21 12:42 Anion Gap 14 mmol/L 08/31/21 12:42 BUN 11 mg/dL (9-20) 08/31/21 12:42 Creatinine 1.6 mg/dL (0.8-1.3) H 08/31/21 12:42 Estimated GFR 43 ml/min 08/31/21 12:42 BUN/Creatinine Ratio 7 % 08/31/21 12:42 Glucose 101 mg/dL (75-100) H 08/31/21 12:42 Calcium 9.6 mg/dL (8.4-10.2) 08/31/21 12:42 Total Bilirubin 0.30 mg/dL (0.1-1.2) 08/31/21 12:42 AST 14 units/L (5-40) 08/31/21 12:42 ALT 12 units/L (7-56) 08/31/21 12:42 Alkaline Phosphatase 96 units/L (35-129) 08/31/21 12:42 Troponin T < 0.010 ng/mL (0.00-0.029) 08/31/21 12:42 Total Protein 7.4 g/dL (6.3-8.2) 08/31/21 12:42 Albumin 4.7 g/dL (3.9-5) 08/31/21 12:42 Albumin/Globulin Ratio 1.7 % 08/31/21 12:42 Triglycerides 63 mg/dL (2-149) 09/01/21 06:07 Cholesterol 240 mg/dL (50-199) H 09/01/21 06:07 LDL Cholesterol Direct 168 mg/dL (50-130) H 09/01/21 06:07 HDL Cholesterol 63 mg/dL (40-59) H 09/01/21 06:07 Cholesterol/HDL Ratio 3.80 % 09/01/21 06:07 Urine Color Straw (Yellow) 09/01/21 17:00 Urine Turbidity Clear (Clear) 09/01/21 17:00 Urine pH 6.0 (5.0-7.0) 09/01/21 17:00 Ur Specific [place] 1.044 (1.003-1.030) H 09/01/21 17:00 Urine Protein <15 mg/dl mg/dL (Negative) 09/01/21 17:00 Urine Glucose (UA) Neg mg/dL (Negative) 09/01/21 17:00 Urine Ketones Neg mg/dL (Negative) 09/01/21 17:00 Urine Blood Neg (Negative) 09/01/21 17:00 Urine Nitrite Neg (Negative) 09/01/21 17:00 Urine Bilirubin Neg (Negative) 09/01/21 17:00 Urine Urobilinogen < 2.0 mg/dL (<2.0) 09/01/21 17:00 Ur Leukocyte Esterase Neg (Negative) 09/01/21 17:00 Urine WBC (Auto) < 1.0 /HPF (0.0-6.0) 09/01/21 17:00 Urine RBC (Auto) < 1.0 /HPF (0.0-6.0) 09/01/21 17:00 Urine Mucus Few /HPF 09/01/21 17:00 Brian/IV: Voiding Method Condom Catheter Active Medications - Current Medications Current Medications: Generic Name Dose Route Start Last Admin Trade Name Freq PRN Reason Stop Dose Admin Acetaminophen 650 mg 08/31/21 16:01 Acetaminophen 325 Mg Tab PO Q4H PRN Pain, Mild (1-3) Albuterol 2.5 mg 08/31/21 16:01 Albuterol 2.5 Mg/3 Ml Nebu IH Q3HRT PRN Shortness Of Breath Aspirin 325 mg 09/01/21 10:00 09/02/21 09:45 Aspirin 325 Mg Tab PO 325 mg QDAY WOJCIECH Administration Atorvastatin Calcium 80 mg 09/01/21 22:00 09/01/21 22:48 Atorvastatin 40 Mg Tab PO 80 mg QHS WOJCIECH Administration Bisacodyl 10 mg 08/31/21 16:01 Bisacodyl 10 Mg Rect Supp VA QDAY PRN Constipation Hydralazine HCl 10 mg 09/01/21 13:07 09/01/21 15:42 Hydralazine 20 Mg/1 Ml Inj IV 10 mg Q4HR PRN Administration Blood Pressure Hydromorphone HCl 0.5 mg 08/31/21 16:01 Hydromorphone 1 Mg/1 Ml Inj IV Q23H PRN Pain , Severe (7-10) Magnesium Hydroxide 30 ml 08/31/21 16:01 Magnesium Hydroxide (Mom) Oral Liqd Udc PO Q4H PRN Constipation Metoclopramide HCl 10 mg 08/31/21 16:01 Metoclopramide 10 Mg Tab PO Q6H PRN Nausea And Vomiting Nifedipine 30 mg 09/01/21 22:00 09/02/21 09:47 Nifedipine Xl 30 Mg Tab PO 30 mg Q12HR WOJCIECH Administration Ondansetron HCl 4 mg 08/31/21 16:01 Ondansetron 4 Mg/2 Ml Inj IV Q8H PRN Nausea And Vomiting Oxycodone/Acetaminophen 1 tab 08/31/21 16:01 09/02/21 02:35 Oxycodone /Acetaminophen 5-325mg Tab PO 1 tab Q16H PRN Administration Pain, Moderate (4-6) Promethazine HCl 25 mg 08/31/21 16:01 Promethazine 25 Mg Rect Supp VA Q6H PRN Nausea And Vomiting Sodium Chloride 10 ml 08/31/21 16:01 09/02/21 09:47 Sodium Chloride 0.9% 10 Ml Flush Syringe IV 10 ml PRN PRN Administration LINE FLUSH Nutrition/Malnutrition Assess - Dietary Evaluation Nutrition/Malnutrition Findings: Nutrition Notes Start: 09/01/21 12:33 Freq: Status: Active Protocol: Document 09/01/21 12:33 JESSICA (Rec: 09/01/21 12:53 JESSICA [id number]) Nutrition Notes 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 Labs/Tests 09/01: Crea 1.6, Glu 101. Pertinent Medications 09/01: Nutritionally unremarkable. Height 5 ft 7 in Weight 75.5 kg [place] Body Weight (kg) 67.27 BMI 26.0 Intake Prior to Admission Good Weight change and time frame Pt denies having loss body weight [employer]. Weight Status Overweight Subjective/Other Information RD consult for skin risk assessment. No reports available on Pt's PO intake of meals at the time , but MD mentioned that Pt was eating his luch without any problem, according to Progress notes. Bedside swallow evaluation passed, according to [facility] swift. RN note on 09/01/21 10:15: pt. has no problem swallowing tolerated food well. Pt is on Room Air, O2 saturation @ 100%, according to Physical Assessment History notes. Pt has missing teeth, according to Physical Assessment History notes. Pt shows no signs of concern for skin risk at the time, according to Physical Assessment History notes. Percent of energy/protein needs met: Prescribed Regular Diet provides for energy/protein needs (2,289 Kcal/89 g) during LOS. Burn Absent Trauma Absent GI Symptoms Nausea,Vomiting Food Allergy No Skin Integrity/Comment Assessment WNL. Minimum of two criteria No #1 Nutrition Diagnosis No nutrition diagnosis at this time Is patient on ventilator? No Is Patient Ambulatory and/or Out of Bed Yes [facility] [ 1941.719 [id number]] Kcal/Kg value to use for calculation 23 Approximate Energy Requirements Using 1737 kcal/Kg Calculation Used for Recommendations Kcal/kg Additional Notes Protein: 0.8-1.2 g/Kg ABW; 61- 91 g/day. Fluids: 1 ml/Kcal, or as per MD. Nutrition Intervention Change Diet Order: Continue Regular Diet. Revisit per MD consult or patient Sign Off request: Additional Comments Continue monitoring food tolerance, %PO intake of meals , and BM.
--- NOTE | 2021-09-02 11:24 | Progress Note ---
Assessment and Plan Assessment and Plan 66 YO Male with Nicotine Dependence, HTN presents to ED for evaluation. Patient reports "I feel weak, left side". Patient states that he experienced sudden onset left arm weakness 3 weeks ago. Patient states that he ignored the symptoms and thought that it would get better. Patient reports difficulty grasping objects in his left hand and maintaining objects in his left hand. Patient also reports new onset weakness in his left leg over the past 3 days with persistent and worsening symptoms over the same timeframe. - Patient Problems # Progressive left side weakness over the last 3 weeks -R/O CVA (cerebral vascular accident) -CT brain is unremarkable -CTA brain and neck Complet occluded right ICA, and decraese flow right MCA -Creatinine #1.6 -MRI brain is pending -NIH today #6 -echo is pending -LDL#168 -A1C is pending -started on Plavix 300 mg once then ASA 325 mg daily--will add plavix 75 mg daily For 3 months -Lipitor increased to 80 mg daily -Pt/ST evaluate -Vascular surgery to see ,doubt to be surgical candidate ? -pt. is rehabilitation candidate. # Accelerated hypertension -Monitor blood pressure every shift, permissive hypertension overnight. -Initial BP 209/90 -control BP<150/90 # Renal insufficiency -BUn/Cr#11/1.6 -hydrate before CTA and after -monitor renal function #Poor compliance with medications -According to pt. he takes no medications at home with poor medical follow up # Nicotine dependence -Smoking cessation counseling, supportive care, behavior change counseling, +15 minutes. # Ping alcoholic drinker -according to pt. last drink was 3 weeks ago -Dt precaution -UDS # DVT prophylaxis -SCD to bilateral lower extremities while in bed will follow as needed Subjective Date of service: 09/02/21 Interval history: left side weakness is unchanged BP is [id number] MRI brain is pending CTA brain and neck--complet occluded right ICA with decrease flow right MCA echo is pending LDL#168 A1C is pending BUN/Cr today is pending Objective - Vital Sign Vital Signs - 12hr 09/02/21 09/02/21 09/02/21 00:00 04:07 05:00 Temperature 99.2 F Pulse Rate 84 93 H Respiratory 18 Rate Blood Pressure Blood Pressure 185/92 161/79 [Right] O2 Sat by Pulse 97 100 94 Oximetry 09/02/21 09/02/21 05:01 09:50 Temperature 98.2 F Pulse Rate 68 77 Respiratory 18 16 Rate Blood Pressure 154/74 Blood Pressure 153/65 [Right] O2 Sat by Pulse 94 99 Oximetry - General Apperance Constitutional: comfortable - EENT EENT: PERRL, mucous membranes moist - Respiratory Respiratory: lungs clear, rhonchi - Cardiovascular Cardiovascular: regular rate, normal S1, normal S2 Extremities: no peripheral edema bilat, no clubbing, cyanosis - Gastrointestinal Gastrointestinal: normoactive bowel sounds - Integumentary Integumentary: normal - Neurologic Cranial nerve examination: PERRL, EOMI, facial droop Speech examination: intact Detailed motor examination: other (left upper and lower 1-2/5 unchanged , reflexes suppressed , unable to walk) - Laboratory Findings CBC and BMP: 08/31/21 12:42 08/31/21 12:42 Abnormal Lab Findings: Abnormal Labs 08/31/21 08/31/21 09/01/21 12:42 12:42 06:07 RBC 5.62 H Hct 46.3 H MCV 82 L MCH 27 L Creatinine 1.6 H Glucose 101 H Cholesterol 240 H LDL Cholesterol Direct 168 H HDL Cholesterol 63 H Ur Specific [place] 09/01/21 17:00 RBC Hct MCV MCH Creatinine Glucose Cholesterol LDL Cholesterol Direct HDL Cholesterol Ur Specific [place] 1.044 H
[2021-09-02 11:49] LABS: BUN/Creatinine Ratio 12; Basophils % (Auto) 0.4 % (0.0-1.8); Blood Urea Nitrogen 14 mg/dL (9-20); Calcium 9.5 mg/dL (8.4-10.2); Eosinophils # (Auto) 0.1 K/mm3 (0.0-0.4); Eosinophils % (Auto) 1.5 % (0.0-4.3); Hematocrit 48.2 % (35.5-45.6); Hemoglobin 16.6 gm/dl (11.8-15.2); Hemolysis Index 47; Lymphocytes # (Auto) 1.3 K/mm3 (1.2-5.4); Lymphocytes % (Auto) 21.5 % (13.4-35.0); Mean Corpuscular HGB Conc 34 % (32-34); Mean Corpuscular Volume 81 fl (84-94); Monocytes # (Auto) 0.6 K/mm3 (0.0-0.8); Monocytes % (Auto) 9.6 % (0.0-7.3); Platelet Count 288 K/mm3 (140-440); Red Blood Count 5.95 M/mm3 (3.65-5.03); Red Cell Distribution Width 15.4 % (13.2-15.2)
--- NOTE | 2021-09-02 16:50 | Consultation ---
History of Present Illness - Reason for Consult Consult date: 09/02/21 CVA with Right Internal Carotid Artery Occlusion Requesting physician: RIVER SARAH - History of Present Illness The patient is a 66-year-old male history of smoking who states he smoked until a week prior to his admission. He presented with a complaint of use of his left arm and leg that has been present for approximately 3 weeks. Thought that this will resolve however they did not he presented to the emergency department. His history of stroke or CO. His work-up included a carotid duplex as well as a CTA of his neck with a CT of his head. The CTA of his neck revealed an patient of his right internal carotid artery. There is flow within the right MCA however the contrast flow was suggested as diminished. He denies taking any antiplatelet or statin medications prior to his admission. He denies any history of TIA or amaurosis fugax. He denies any history of claudication. He has no additional complaints at this time. Past History Past Medical History: hypertension, other (See HPI) Past Surgical History: No surgical history, Other (Reviewed) Social history: smoking Family history: hypertension Medications and Allergies Allergies Allergy/AdvReac Type Severity Reaction Status Date / Time No Known Allergies Allergy Verified 08/31/21 12:37 Home Medications Medication Instructions Recorded Confirmed Last Taken Type No Known Home Medications [No 09/01/21 09/01/21 Unknown History Reported Home Medications] Active Meds: Active Medications Acetaminophen (Acetaminophen 325 Mg Tab) 650 mg PO Q4H PRN PRN Reason: Pain, Mild (1-3) Albuterol (Albuterol 2.5 Mg/3 Ml Nebu) 2.5 mg IH Q3HRT PRN PRN Reason: Shortness Of Breath Aspirin (Aspirin 325 Mg Tab) 325 mg PO QDAY [facility] Last Admin: 09/02/21 09:45 Dose: 325 mg Atorvastatin Calcium (Atorvastatin 40 Mg Tab) 80 mg PO QHS WOJCIECH Last Admin: 09/01/21 22:48 Dose: 80 mg Bisacodyl (Bisacodyl 10 Mg Rect Supp) 10 mg [place] QDAY PRN PRN Reason: Constipation Hydralazine HCl (Hydralazine 20 Mg/1 Ml Inj) 10 mg IV Q4HR PRN PRN Reason: Blood Pressure Last Admin: 09/01/21 15:42 Dose: 10 mg Hydromorphone HCl (Hydromorphone 1 Mg/1 Ml Inj) 0.5 mg IV Q23H PRN PRN Reason: Pain , Severe (7-10) Magnesium Hydroxide (Magnesium Hydroxide (Mom) Oral Liqd Udc) 30 ml PO Q4H PRN PRN Reason: Constipation Metoclopramide HCl (Metoclopramide 10 Mg Tab) 10 mg PO Q6H PRN PRN Reason: Nausea And Vomiting Nifedipine (Nifedipine Xl 30 Mg Tab) 30 mg PO Q12HR WOJCIECH Last Admin: 09/02/21 09:47 Dose: 30 mg Ondansetron HCl (Ondansetron 4 Mg/2 Ml Inj) 4 mg IV Q8H PRN PRN Reason: Nausea And Vomiting Oxycodone/Acetaminophen (Oxycodone /Acetaminophen 5-325mg Tab) 1 tab PO Q16H PRN PRN Reason: Pain, Moderate (4-6) Last Admin: 09/02/21 14:22 Dose: 1 tab Promethazine HCl (Promethazine 25 Mg Rect Supp) 25 mg [place] Q6H PRN PRN Reason: Nausea And Vomiting Sodium Chloride (Sodium Chloride 0.9% 10 Ml Flush Syringe) 10 ml IV PRN PRN PRN Reason: LINE FLUSH Last Admin: 09/02/21 09:47 Dose: 10 ml Review of Systems All systems: negative Exam - Constitutional Vitals: Temp Pulse Resp BP Pulse Ox 98.1 F 117 H 20 137/69 94 09/02/21 11:52 09/02/21 11:52 09/02/21 11:52 09/02/21 11:52 09/02/21 11:52 General appearance: Present: no acute distress - Respiratory Respiratory effort: normal - Cardiovascular Rhythm: regular - Extremities Extremities: pulses intact (Left dorsalis pedal pulse, nonpalpable right pedal pulses), No edema - Rectal Rectal Exam: deferred - Musculoskeletal Musculoskeletal: left sided weakness (Ability to lift his left arm or squeeze with his hand, inability to dorsiflex or plantarflex left foot) Results - Labs CBC & Chem 7: 09/02/21 11:07 09/02/21 11:07 Labs: Abnormal lab results 09/01/21 09/02/21 09/02/21 Range/Units 17:00 11:07 11:07 RBC 5.95 H (3.65-5.03) M/mm3 Hgb 16.6 H (11.8-15.2) gm/dl Hct 48.2 H (35.5-45.6) % MCV 81 L (84-94) fl RDW 15.4 H (13.2-15.2) % [place] % (Auto) 9.6 H (0.0-7.3) % Sodium 136 L (137-145) mmol/L Potassium 3.5 L (3.6-5.0) mmol/L Ur Specific [place] 1.044 H (1.003-1.030) - Imaging and Cardiology CT Scan - head: image reviewed, other (CTA of the neck images reviewed) Venous US: other (Carotid duplex images reviewed) Assessment and Plan Is a 66-year-old male presented with signs and system consistent with a subacute CVA. His CTA of the neck reveals an occlusion of the right internal carotid artery. Review of the films at the appearance of possible thrombus within the artery. Review of the carotid duplex does not reveal a significant amount of plaque within the is also not demonstrated on the CTA of the neck, again suggesting that this may be thrombotic or embolic in nature. Given the possibility of thrombus I agree with the echocardiogram to rule out a cardiac source. Given the likely thrombotic nature of the occlusion I would recommend adding oral anticoagulation to his statin and antiplatelet regimen. This will consist of Plavix 75 mg p.o. daily and preferably Eliquis 5 mg p.o. twice daily. Prior to initiating the anticoagulation would recommend an MRI of the head to rule out a large stroke or any other relative contraindications for anticoagulation. No surgical intervention is required. I discussed this plan with the patient who expressed understanding and agrees.
--- NOTE | 2021-09-02 17:11 | Magnetic Resonance Report ---
MR brain wo con INDICATION / CLINICAL INFORMATION: 66 years Male; cva. TECHNIQUE: Multiplanar, multisequence MR images of the brain were obtained. COMPARISON: CT - 08/31/2020 FINDINGS: BRAIN / INTRACRANIAL CONTENTS: Multiple, patchy areas of acute/subacute ischemic changes are seen pre dominantly in the right parietal lobe, but also scattered throughout portions of the right MCA territ ory. Minimal involvement of the bilateral JAE and left MCA territories suggested, as well, with the l atter being evidenced by inferior gangliocapsular region on the left. Gradient echo and T1-weighted i maging suggests there may be some early cortical laminar necrosis in the right parietal region of inv olvement. Subacute branch infarcts seen in the left [employer] territory. Otherwise, no acute hemorrhage, mass effect, midline shift, hydrocephalus, or acute, large territori al infarct. No chronic infarct or atrophy. There are [id number] areas of increased signal intensity on FLAIR imaging in the white matter o f the cerebral hemispheres. These are nonspecific findings and may be related to microangiopathy (hyp ertension, diabetes, atherosclerosis), given the patient's age. Small lacunar infarcts seen in the po ns rightward of midline. CRANIOCERVICAL JUNCTION: No significant abnormality. VASCULAR FLOW-VOIDS: Increased T2 signal seen in the right internal carotid artery, suggesting slow o r absent flow. ORBITS: No significant abnormality of visualized orbits. SINUSES / MASTOIDS: No significant abnormality in the visualized paranasal sinuses or mastoid air emerald ls. ADDITIONAL FINDINGS: None. IMPRESSION: 1. Patchy areas of acute/early subacute ischemia, as described above. Embolic phenomenon should be co nsidered. No definitive signs of hemorrhagic transformation at this time. Signer Name: Osmel Main MD, III Signed: 09/02/2021 5:07 PM Workstation Name: [id number]
[2021-09-03] MEDS: hydrALAZINE 20 MG/1 ML INJ IV PRN (06:52)
[2021-09-03] MEDS: ACETAMINOPHEN 325 MG TAB PO PRN (06:54)
[2021-09-03] MEDS: NIFEdipine XL 30 MG TAB PO SCH ×2 (09:23→21:44)
[2021-09-03] MEDS: ASPIRIN 325 MG TAB PO SCH (09:23)
--- NOTE | 2021-09-03 09:56 | Progress Note ---
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 Patient states that he ignored the symptoms and thought that it would get better. Patient reported difficulty grasping objects in his left hand and maintaining objects in his left hand. Patient also reported new onset weakness in his left leg over the past 3 days GRAPHICS EDITOR. All lab and imaging studies reviewed. The patient was found to have a focal neurologic deficit at the time of his arrival. A code stroke was called and the patient was initiated on CVA protocol and admitted to medical floor due to increased risk of worsening symptoms. Teleneurology consulted. Patient de emed outside the window for tPA. Acute CVA Accelerated hypertension Acute kidney injury on probable CKD Medical noncompliance Tobacco abuse EtOH abuse 09/01/2021. CT of the brain is unremarkable. Await CTA of the brain and neck and MRI. Neurology following. Follow-up echocardiogram. Patient started on Plavix and aspirin. Lipitor increased to 80 mg daily. Await PT/ST evaluation. Patient received permissive hypertension overnight. We will start Procardia 30 mg p.o. twice daily. 09/02/2021. CTA of head/neck neck reveals occluded right ICA which may be secondary to dissection. Patient also has decreased flow in the right MCA territory. Significant narrowing seen at the origin of both vertebral arteries. Also, some irregularity of the esophagus with recommendations for esophagram. Follow-up MRI. We will consult vascular surgery for further evaluation. Neurology following 09/03/2021. The patient had signs and system consistent with a subacute CVA. CTA of the neck reveals an occlusion of the right internal carotid artery. Vascular surgery was consulted and reviewed the films at the appearance of possible thrombus within the artery. Review of the carotid duplex does not reveal a significant amount of plaque within the is also not demonstrated on the CTA of the neck, again suggesting that this may be thrombotic or embolic in nature. Vascular surgery reports that given the possibility of thrombus, we would obtain echocardiogram to rule out a cardiac source. The patient may likely need JOSE. Consider consulting cardiology for recommendations for JOSE. Given the likely thrombotic nature of the occlusion, vascular surgery would recommend adding oral anticoagulation to his statin and antiplatelet regimen. We will start Plavix 75 mg p.o. daily and Eliquis 5 mg p.o. daily after MRI of head to rule out large CVA. Vascular surgery reports no surgical intervention required. History Interval history: No new issues overnight Hospitalist Physical - Constitutional Vitals: Temp Pulse Resp BP Pulse Ox 99.8 F H 90 17 169/77 97 09/03/21 05:39 09/03/21 05:39 09/03/21 07:53 09/03/21 05:39 09/03/21 07:01 General appearance: Present: no acute distress - EENT Eyes: Present: PERRL, EOM intact ENT: hearing intact, clear oral mucosa, dentition normal - Neck Neck: Present: supple, normal ROM - Respiratory Respiratory effort: normal Respiratory: bilateral: CTA - Cardiovascular Rhythm: regular Heart Sounds: Present: S1 & S2. Absent: gallop, rub - Extremities Extremities: no ischemia, No edema, Full ROM - Abdominal General gastrointestinal: soft, non-tender, non-distended, normal bowel sounds - Integumentary Integumentary: Present: clear, warm, dry - Neurologic Neurologic: CNII-XII intact, moves all extremities HEART Score - HEART Score Troponin: Troponin T < 0.010 ng/mL (0.00-0.029) 08/31/21 12:42 Results - Labs CBC & Chem 7: 09/03/21 09:50 09/03/21 09:50 Labs: Laboratory Last Values WBC 6.2 K/mm3 (4.5-11.0) 09/02/21 11:07 RBC 5.95 M/mm3 (3.65-5.03) H 09/02/21 11:07 Hgb 16.6 gm/dl (11.8-15.2) H 09/02/21 11:07 Hct 48.2 % (35.5-45.6) H 09/02/21 11:07 MCV 81 fl (84-94) L 09/02/21 11:07 MCH 28 pg (28-32) 09/02/21 11:07 MCHC 34 % (32-34) 09/02/21 11:07 RDW 15.4 % (13.2-15.2) H 09/02/21 11:07 Plt Count 288 K/mm3 (140-440) 09/02/21 11:07 Lymph % (Auto) 21.5 % (13.4-35.0) 09/02/21 11:07 [place] % (Auto) 9.6 % (0.0-7.3) H 09/02/21 11:07 Eos % (Auto) 1.5 % (0.0-4.3) 09/02/21 11:07 Baso % (Auto) 0.4 % (0.0-1.8) 09/02/21 11:07 Lymph # (Auto) 1.3 K/mm3 (1.2-5.4) 09/02/21 11:07 [place] # (Auto) 0.6 K/mm3 (0.0-0.8) 09/02/21 11:07 Eos # (Auto) 0.1 K/mm3 (0.0-0.4) 09/02/21 11:07 Baso # (Auto) 0.0 K/mm3 (0.0-0.1) 09/02/21 11:07 Seg Neutrophils % 67.0 % (40.0-70.0) 09/02/21 11:07 Seg Neutrophils # 4.2 K/mm3 (1.8-7.7) 09/02/21 11:07 ESR 1 mm/Hr (0-20) 09/02/21 12:54 Sodium 136 mmol/L (137-145) L 09/02/21 11:07 Potassium 3.5 mmol/L (3.6-5.0) L 09/02/21 11:07 Chloride 98.0 mmol/L (98-107) 09/02/21 11:07 Carbon Dioxide 28 mmol/L (22-30) 09/02/21 11:07 Anion Gap 14 mmol/L 09/02/21 11:07 BUN 14 mg/dL (9-20) 09/02/21 11:07 Creatinine 1.2 mg/dL (0.8-1.3) 09/02/21 11:07 Estimated GFR > 60 ml/min 09/02/21 11:07 BUN/Creatinine Ratio 12 % 09/02/21 11:07 Glucose 79 mg/dL (75-100) 09/02/21 11:07 Calcium 9.5 mg/dL (8.4-10.2) 09/02/21 11:07 Total Bilirubin 0.30 mg/dL (0.1-1.2) 08/31/21 12:42 AST 14 units/L (5-40) 08/31/21 12:42 ALT 12 units/L (7-56) 08/31/21 12:42 Alkaline Phosphatase 96 units/L (35-129) 08/31/21 12:42 Troponin T < 0.010 ng/mL (0.00-0.029) 08/31/21 12:42 Total Protein 7.4 g/dL (6.3-8.2) 08/31/21 12:42 Albumin 4.7 g/dL (3.9-5) 08/31/21 12:42 Albumin/Globulin Ratio 1.7 % 08/31/21 12:42 Triglycerides 63 mg/dL (2-149) 09/01/21 06:07 Cholesterol 240 mg/dL (50-199) H 09/01/21 06:07 LDL Cholesterol Direct 168 mg/dL (50-130) H 09/01/21 06:07 HDL Cholesterol 63 mg/dL (40-59) H 09/01/21 06:07 Cholesterol/HDL Ratio 3.80 % 09/01/21 06:07 Urine Color Straw (Yellow) 09/01/21 17:00 Urine Turbidity Clear (Clear) 09/01/21 17:00 Urine pH 6.0 (5.0-7.0) 09/01/21 17:00 Ur Specific [place] 1.044 (1.003-1.030) H 09/01/21 17:00 Urine Protein <15 mg/dl mg/dL (Negative) 09/01/21 17:00 Urine Glucose (UA) Neg mg/dL (Negative) 09/01/21 17:00 Urine Ketones Neg mg/dL (Negative) 09/01/21 17:00 Urine Blood Neg (Negative) 09/01/21 17:00 Urine Nitrite Neg (Negative) 09/01/21 17:00 Urine Bilirubin Neg (Negative) 09/01/21 17:00 Urine Urobilinogen < 2.0 mg/dL (<2.0) 09/01/21 17:00 Ur Leukocyte Esterase Neg (Negative) 09/01/21 17:00 Urine WBC (Auto) < 1.0 /HPF (0.0-6.0) 09/01/21 17:00 Urine RBC (Auto) < 1.0 /HPF (0.0-6.0) 09/01/21 17:00 Urine Mucus Few /HPF 09/01/21 17:00 Brian/IV: Voiding Method Condom Catheter Active Medications - Current Medications Current Medications: Generic Name Dose Route Start Last Admin Trade Name Freq PRN Reason Stop Dose Admin Acetaminophen 650 mg 08/31/21 16:01 09/03/21 06:54 Acetaminophen 325 Mg Tab PO 650 mg Q4H PRN Administration Pain, Mild (1-3) Albuterol 2.5 mg 08/31/21 16:01 Albuterol 2.5 Mg/3 Ml Nebu IH Q3HRT PRN Shortness Of Breath Aspirin 325 mg 09/01/21 10:00 09/03/21 09:23 Aspirin 325 Mg Tab PO 325 mg QDAY WOJCIECH Administration Atorvastatin Calcium 80 mg 09/01/21 22:00 09/02/21 21:58 Atorvastatin 40 Mg Tab PO 80 mg QHS WOJCIECH Administration Bisacodyl 10 mg 08/31/21 16:01 Bisacodyl 10 Mg Rect Supp VA QDAY PRN Constipation Hydralazine HCl 10 mg 09/01/21 13:07 09/03/21 06:52 Hydralazine 20 Mg/1 Ml Inj IV 10 mg Q4HR PRN Administration Blood Pressure Hydromorphone HCl 0.5 mg 08/31/21 16:01 Hydromorphone 1 Mg/1 Ml Inj IV Q23H PRN Pain , Severe (7-10) Magnesium Hydroxide 30 ml 08/31/21 16:01 Magnesium Hydroxide (Mom) Oral Liqd Udc PO Q4H PRN Constipation Metoclopramide HCl 10 mg 08/31/21 16:01 Metoclopramide 10 Mg Tab PO Q6H PRN Nausea And Vomiting Nifedipine 30 mg 09/01/21 22:00 09/03/21 09:23 Nifedipine Xl 30 Mg Tab PO 30 mg Q12HR WOJCIECH Administration Ondansetron HCl 4 mg 08/31/21 16:01 Ondansetron 4 Mg/2 Ml Inj IV Q8H PRN Nausea And Vomiting Oxycodone/Acetaminophen 1 tab 08/31/21 16:01 09/02/21 14:22 Oxycodone /Acetaminophen 5-325mg Tab PO 1 tab Q16H PRN Administration Pain, Moderate (4-6) Promethazine HCl 25 mg 08/31/21 16:01 Promethazine 25 Mg Rect Supp VA Q6H PRN Nausea And Vomiting Sodium Chloride 10 ml 08/31/21 16:01 09/02/21 21:59 Sodium Chloride 0.9% 10 Ml Flush Syringe IV 10 ml PRN PRN Administration LINE FLUSH Nutrition/Malnutrition Assess - Dietary Evaluation Nutrition/Malnutrition Findings: Nutrition Notes Start: 09/01/21 12:33 Freq: Status: Active Protocol: Document 09/01/21 12:33 JESSICA (Rec: 09/01/21 12:53 JESSICA [id number]) Nutrition Notes 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 Labs/Tests 09/01: Crea 1.6, Glu 101. Pertinent Medications 09/01: Nutritionally unremarkable. 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 Weight Status Overweight Subjective/Other Information RD consult for skin risk assessment. No reports available on Pt's PO intake of meals at the time , but MD mentioned that Pt was eating his luch without any problem, according to Progress notes. Bedside swallow evaluation passed, according to MUMTAZ swift. RN note on 09/01/21 10:15: pt. has no problem swallowing tolerated food well. Pt is on Room Air, O2 saturation @ 100%, according to Physical Assessment History notes. Pt has missing teeth, according to Physical Assessment History notes. Pt shows no signs of concern for skin risk at the time, according to Physical Assessment History notes. Percent of energy/protein needs met: Prescribed Regular Diet provides for energy/protein needs (2,289 Kcal/89 g) during LOS. Burn Absent Trauma Absent GI Symptoms Nausea,Vomiting Food Allergy No Skin Integrity/Comment Assessment WNL. Minimum of two criteria No #1 Nutrition Diagnosis No nutrition diagnosis at this time Is patient on ventilator? No Is Patient Ambulatory and/or Out of Bed Yes REE-([place]-ambulatory/OOB) [ 1941.719 NUTR.MSJOOB] Kcal/Kg value to use for calculation 23 Approximate Energy Requirements Using 1737 kcal/Kg Calculation Used for Recommendations Kcal/kg Additional Notes Protein: 0.8-1.2 g/Kg ABW; 61- 91 g/day. Fluids: 1 ml/Kcal, or as per MD. Nutrition Intervention Change Diet Order: Continue Regular Diet. Revisit per MD consult or patient Sign Off request: Additional Comments Continue monitoring food tolerance, %PO intake of meals , and BM.
[2021-09-03 10:28] LABS: Basophils % (Auto) 0.6 % (0.0-1.8); Eosinophils # (Auto) 0.1 K/mm3 (0.0-0.4); Eosinophils % (Auto) 1.3 % (0.0-4.3); Lymphocytes # (Auto) 1.4 K/mm3 (1.2-5.4); Lymphocytes % (Auto) 21.4 % (13.4-35.0); Mean Corpuscular HGB Conc 32 % (32-34); Mean Corpuscular Volume 83 fl (84-94); Monocytes # (Auto) 0.8 K/mm3 (0.0-0.8); Monocytes % (Auto) 11.7 % (0.0-7.3); Platelet Count 298 K/mm3 (140-440); Red Blood Count 6.02 M/mm3 (3.65-5.03); Red Cell Distribution Width 15.3 % (13.2-15.2)
[2021-09-03 10:45] LABS: BUN/Creatinine Ratio 15; Blood Urea Nitrogen 16 mg/dL (9-20); Calcium 9.2 mg/dL (8.4-10.2); Hemolysis Index 33
--- NOTE | 2021-09-03 14:12 | Event Note ---
Date: 09/03/[address] scan. Not surgical candidate at this time. Patient has complete right ICA occlusion. Recommend anticoagulation. Recommend antiplatelet therapy (aspirin or Plavix). Recommend statin therapy. Suspect ICA occlusion acute which would benefit from anticoagulation. If this is chronic, then patient would also benefit at this would prevent carotid stump syndrome. Will allow neurology to make final decisions.
[2021-09-04] MEDS: ASPIRIN 325 MG TAB PO SCH (09:03)
[2021-09-04] MEDS: NIFEdipine XL 30 MG TAB PO SCH ×2 (09:03→21:50)
--- NOTE | 2021-09-04 18:31 | Electrocardiograph Report ---
[facility] Test Date: 2021-08-31 Test Time: 16:16:58 Pat Name: MARY GASTON Department: Room: A367 1 Gender: M Reheater: GP : 1955 Requested By: MAKAYLA DUNHAM Order Number: [id number] Reading MD: Hannah Reeder Measurements Intervals [place] Rate: 73 P: 74 DC: 180 QRS: 13 QRSD: 90 T: 31 QT: 360 QTc: 397 Interpretive Statements Sinus rhythm No previous ECG available for comparison Electronically Signed On 09-04-2021 18:30:45 EDT by Hannah Reeder
--- NOTE | 2021-09-04 20:26 | Progress Note ---
Assessment and Plan Assessment and plan: 66 YO Male with Nicotine Dependence, HTN presents to ED for evaluation of sudden onset left arm weakness [address]. Patient states that he ignored the symptoms and thought that it would get better. Patient reported difficulty grasping objects in his left hand and maintaining objects in his left hand. Patient also reported new onset weakness in his left leg over the past [address]. All lab and imaging studies reviewed. The patient was found to have a focal neurologic deficit at the time of his arrival. A code stroke was called and the patient was initiated on CVA protocol and admitted to medical floor due to increased risk of worsening symptoms. Teleneurology consulted. Patient virgil med outside the window for tPA. Acute CVA; extensive work-up reviewed Aspirin and statin Physical therapy occupational therapy rehabilitation Follow-up pending neuro work-up Neurology evaluation noted and appreciated PT and OT evaluated the patient Both services recommend acute rehab placement Discharge planning per case management Right internal carotid artery stenosis; Evaluated by vascular/IR No indication for surgical intervention Accelerated hypertension; Continue multiple antihypertensives Permissive hypertension per protocol Acute kidney injury on probable CKD; Due to vasomotor nephropathy Resolved, creatinine normal levels Medical noncompliance; Counseling strongly advised to comply with medications diet and follow-up visits Tobacco abuse; Smoking cessation counseling Strongly advised to quit tobacco use Nicotine patch as needed EtOH abuse; Advised to quit alcohol intake, monitor for alcohol withdrawal symptoms CIWA protocol if needed, recommend alcohol rehabilitation upon discharge DVT prophylaxis; subcu Lovenox Social issues; patient has no resources no insurance Very difficult to consider acute or subacute rehab. Discussed with case management the discharge planning Closely monitor the patient and adjust management as needed DC planning per case management 09/01/2021. CT of the brain is unremarkable. Await CTA of the brain and neck and MRI. Neurology following. Follow-up echocardiogram. Patient started on Plavix and aspirin. Lipitor increased to 80 mg daily. Await PT/ST evaluation. Patient received permissive hypertension overnight. We will start Procardia 30 mg p.o. twice daily. 09/02/2021. CTA of head/neck neck reveals occluded right ICA which may be secondary to dissection. Patient also has decreased flow in the right MCA territory. Significant narrowing seen at the origin of both vertebral arteries. Also, some irregularity of the esophagus with recommendations for esophagram. Follow-up MRI. We will consult vascular surgery for further evaluation. Neurology following 09/03/2021. The patient had signs and system consistent with a subacute CVA. CTA of the neck reveals an occlusion of the right internal carotid artery. Va scular surgery was consulted and reviewed the films at the appearance of possible thrombus within the artery. Review of the carotid duplex does not reveal a significant amount of plaque within the is also not demonstrated on the CTA of the neck, again suggesting that this may be thrombotic or embolic in nature. Vascular surgery reports that given the possibility of thrombus, we would obtain echocardiogram to rule out a cardiac source. The patient may likely need JOSE. Consider consulting cardiology for recommendations for JOSE. Given the likely thrombotic nature of the occlusion, vascular surgery would recommend adding oral anticoagulation to his statin and antiplatelet regimen. We will start Plavix 75 mg p.o. daily and Eliquis 5 mg p.o. daily after MRI of head to rule out large CVA. Vascular surgery reports no surgical intervention required. 09/04; patient restrained for safety, closely monitor for alcohol withdrawal symptoms Consultants and recommendations noted and appreciated History Interval history: I have seen and examined the patient at the bedside Patient's chart and medications reviewed Patient had extensive neuro work-up Findings consistent with acute CVA Vital signs noted Hospitalist Physical - Constitutional Vitals: Temp Pulse Resp BP Pulse Ox 97.7 F 85 18 135/58 97 09/04/21 11:39 09/04/21 11:39 09/04/21 11:39 09/04/21 11:39 09/04/21 11:39 General appearance: Present: no acute distress - EENT Eyes: Present: PERRL, EOM intact - Neck Neck: Present: supple, normal ROM - Respiratory Respiratory effort: normal Respiratory: bilateral: diminished, negative: rales, rhonchi, wheezing - Cardiovascular Rhythm: regular Heart Sounds: Present: S1 & S2 - Extremities Extremities: no ischemia, No edema - Abdominal General gastrointestinal: soft, non-tender, non-distended, normal bowel sounds - Integumentary Integumentary: Present: clear, warm - Psychiatric Psychiatric: appropriate mood/affect, cooperative - Neurologic Neurologic: moves all extremities HEART Score - HEART Score Troponin: Troponin T < 0.010 ng/mL (0.00-0.029) 08/31/21 12:42 Results - Labs CBC & Chem 7: 09/03/21 09:50 09/03/21 09:50 Labs: Laboratory Last Values WBC 6.4 K/mm3 (4.5-11.0) 09/03/21 09:50 RBC 6.02 M/mm3 (3.65-5.03) H 09/03/21 09:50 Hgb 16.0 gm/dl (11.8-15.2) H 09/03/21 09:50 Hct 50.0 % (35.5-45.6) H 09/03/21 09:50 MCV 83 fl (84-94) L 09/03/21 09:50 MCH 27 pg (28-32) L 09/03/21 09:50 MCHC 32 % (32-34) 09/03/21 09:50 RDW 15.3 % (13.2-15.2) H 09/03/21 09:50 Plt Count 298 K/mm3 (140-440) 09/03/21 09:50 Lymph % (Auto) 21.4 % (13.4-35.0) 09/03/21 09:50 [place] % (Auto) 11.7 % (0.0-7.3) H 09/03/21 09:50 Eos % (Auto) 1.3 % (0.0-4.3) 09/03/21 09:50 Baso % (Auto) 0.6 % (0.0-1.8) 09/03/21 09:50 Lymph # (Auto) 1.4 K/mm3 (1.2-5.4) 09/03/21 09:50 [place] # (Auto) 0.8 K/mm3 (0.0-0.8) 09/03/21 09:50 Eos # (Auto) 0.1 K/mm3 (0.0-0.4) 09/03/21 09:50 Baso # (Auto) 0.0 K/mm3 (0.0-0.1) 09/03/21 09:50 Seg Neutrophils % 65.0 % (40.0-70.0) 09/03/21 09:50 Seg Neutrophils # 4.2 K/mm3 (1.8-7.7) 09/03/21 09:50 ESR 1 mm/Hr (0-20) 09/02/21 12:54 Sodium 136 mmol/L (137-145) L 09/03/21 09:50 Potassium 3.7 mmol/L (3.6-5.0) 09/03/21 09:50 Chloride 100.4 mmol/L (98-107) 09/03/21 09:50 Carbon Dioxide 22 mmol/L (22-30) 09/03/21 09:50 Anion Gap 17 mmol/L 09/03/21 09:50 BUN 16 mg/dL (9-20) 09/03/21 09:50 Creatinine 1.1 mg/dL (0.8-1.3) 09/03/21 09:50 Estimated GFR > 60 ml/min 09/03/21 09:50 BUN/Creatinine Ratio 15 % 09/03/21 09:50 Glucose 89 mg/dL (75-100) 09/03/21 09:50 POC Glucose 218 mg/dL (70-105) H 09/03/21 18:34 Calcium 9.2 mg/dL (8.4-10.2) 09/03/21 09:50 Total Bilirubin 0.30 mg/dL (0.1-1.2) 08/31/21 12:42 AST 14 units/L (5-40) 08/31/21 12:42 ALT 12 units/L (7-56) 08/31/21 12:42 Alkaline Phosphatase 96 units/L (35-129) 08/31/21 12:42 Troponin T < 0.010 ng/mL (0.00-0.029) 08/31/21 12:42 Total Protein 7.4 g/dL (6.3-8.2) 08/31/21 12:42 Albumin 4.7 g/dL (3.9-5) 08/31/21 12:42 Albumin/Globulin Ratio 1.7 % 08/31/21 12:42 Triglycerides 63 mg/dL (2-149) 09/01/21 06:07 Cholesterol 240 mg/dL (50-199) H 09/01/21 06:07 LDL Cholesterol Direct 168 mg/dL (50-130) H 09/01/21 06:07 HDL Cholesterol 63 mg/dL (40-59) H 09/01/21 06:07 Cholesterol/HDL Ratio 3.80 % 09/01/21 06:07 Urine Color Straw (Yellow) 09/01/21 17:00 Urine Turbidity Clear (Clear) 09/01/21 17:00 Urine pH 6.0 (5.0-7.0) 09/01/21 17:00 Ur Specific [place] 1.044 (1.003-1.030) H 09/01/21 17:00 Urine Protein <15 mg/dl mg/dL (Negative) 09/01/21 17:00 Urine Glucose (UA) Neg mg/dL (Negative) 09/01/21 17:00 Urine Ketones Neg mg/dL (Negative) 09/01/21 17:00 Urine Blood Neg (Negative) 09/01/21 17:00 Urine Nitrite Neg (Negative) 09/01/21 17:00 Urine Bilirubin Neg (Negative) 09/01/21 17:00 Urine Urobilinogen < 2.0 mg/dL (<2.0) 09/01/21 17:00 Ur Leukocyte Esterase Neg (Negative) 09/01/21 17:00 Urine WBC (Auto) < 1.0 /HPF (0.0-6.0) 09/01/21 17:00 Urine RBC (Auto) < 1.0 /HPF (0.0-6.0) 09/01/21 17:00 Urine Mucus Few /HPF 09/01/21 17:00 Brian/IV: Voiding Method Condom Catheter Active Medications - Current Medications Current Medications: Generic Name Dose Route Start Last Admin Trade Name Freq PRN Reason Stop Dose Admin Acetaminophen 650 mg 08/31/21 16:01 09/03/21 06:54 Acetaminophen 325 Mg Tab PO 650 mg Q4H PRN Administration Pain, Mild (1-3) Albuterol 2.5 mg 08/31/21 16:01 Albuterol 2.5 Mg/3 Ml Nebu IH Q3HRT PRN Shortness Of Breath Aspirin 325 mg 09/01/21 10:00 09/04/21 09:03 Aspirin 325 Mg Tab PO 325 mg QDAY WOJCIECH Administration Atorvastatin Calcium 80 mg 09/01/21 22:00 09/03/21 21:43 Atorvastatin 40 Mg Tab PO 80 mg QHS WOJCIECH Administration Bisacodyl 10 mg 08/31/21 16:01 Bisacodyl 10 Mg Rect Supp [place] QDAY PRN Constipation Hydralazine HCl 10 mg 09/01/21 13:07 09/03/21 06:52 Hydralazine 20 Mg/1 Ml Inj IV 10 mg Q4HR PRN Administration Blood Pressure Hydromorphone HCl 0.5 mg 08/31/21 16:01 Hydromorphone 1 Mg/1 Ml Inj IV Q23H PRN Pain , Severe (7-10) Magnesium Hydroxide 30 ml 08/31/21 16:01 Magnesium Hydroxide (Mom) Oral Liqd Udc PO Q4H PRN Constipation Metoclopramide HCl 10 mg 08/31/21 16:01 Metoclopramide 10 Mg Tab PO Q6H PRN Nausea And Vomiting Nifedipine 30 mg 09/01/21 22:00 09/04/21 09:03 Nifedipine Xl 30 Mg Tab PO 30 mg Q12HR WOJCIECH Administration Ondansetron HCl 4 mg 08/31/21 16:01 Ondansetron 4 Mg/2 Ml Inj IV Q8H PRN Nausea And Vomiting Oxycodone/Acetaminophen 1 tab 08/31/21 16:01 09/02/21 14:22 Oxycodone /Acetaminophen 5-325mg Tab PO 1 tab Q16H PRN Administration Pain, Moderate (4-6) Promethazine HCl 25 mg 08/31/21 16:01 Promethazine 25 Mg Rect Supp [place] Q6H PRN Nausea And Vomiting Sodium Chloride 10 ml 08/31/21 16:01 09/04/21 09:04 Sodium Chloride 0.9% 10 Ml Flush Syringe IV 10 ml PRN PRN Administration LINE FLUSH Nutrition/Malnutrition Assess - Dietary Evaluation Nutrition/Malnutrition Findings: Nutrition Notes Start: 09/01/21 12:33 Freq: Status: Active Protocol: Document 09/01/21 12:33 JESSICA (Rec: 09/01/21 12:53 JESSICA [id number]) 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 Labs/Tests 09/01: Crea 1.6, Glu 101. Pertinent Medications 09/01: Nutritionally unremarkable. 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 No reports available on Pt's PO intake of meals at the time , but mentioned that Pt was eating his luch without any problem, according to Progress notes. Bedside swallow evaluation passed, according to MUMTAZ swift. RN note on 09/01/21 10:15: pt. has no problem swallowing tolerated food well. Pt is on Room Air, O2 saturation @ 100%, according to Physical Assessment History notes. Pt has missing teeth, according to Physical Assessment History notes. Pt shows no signs of concern for skin risk at the time, according to Physical Assessment History notes. Percent of energy/protein needs met: Prescribed Regular Diet provides for energy/protein needs (2,289 Kcal/89 g) during LOS. Burn Absent Trauma Absent GI Symptoms Nausea,Vomiting Food Allergy No Skin Integrity/Comment Assessment WNL. Minimum of two criteria No #1 Nutrition Diagnosis No nutrition diagnosis at this time Is patient on ventilator? No Is Patient Ambulatory and/or Out of Bed Yes REE-([place]-[facility]-ambulatory/OOB) [ 1941.719 NUTR.MSJOOB] Kcal/Kg value to use for calculation 23 Approximate Energy Requirements Using 1737 kcal/Kg Calculation Used for Recommendations Kcal/kg Additional Notes Protein: 0.8-1.2 g/Kg ABW; 61- 91 g/day. Fluids: 1 ml/Kcal, or as per MD. Nutrition Intervention Change Diet Order: Continue Regular Diet. Revisit per MD consult or patient Sign Off request: Additional Comments Continue monitoring food tolerance, %PO intake of meals , and BM.
[2021-09-04] MEDS: ENOXAPARIN 40 MG/0.4 ML INJ SUB-Q SCH (21:50)
[2021-09-05] MEDS: ASPIRIN 325 MG TAB PO SCH (09:41)
[2021-09-05] MEDS: NIFEdipine XL 30 MG TAB PO SCH ×2 (09:41→22:03)
--- NOTE | 2021-09-05 20:43 | Progress Note ---
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 Patient states that he ignored the symptoms and thought that it would get better. Patient reported difficulty grasping objects in his left hand and maintaining objects in his left hand. 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 All lab and imaging studies reviewed. The patient was found to have a focal neurologic deficit at the time of his arrival. A code stroke was called and the patient was initiated on CVA protocol and admitted to medical floor due to increased risk of worsening symptoms. Teleneurology consulted. Patient virgil med outside the window for tPA. Acute CVA; extensive work-up reviewed Aspirin and statin Physical therapy occupational therapy rehabilitation Follow-up pending neuro work-up Neurology evaluation noted and appreciated PT and OT evaluated the patient Both services recommend acute rehab placement Discharge planning per case management Right internal carotid artery stenosis; Evaluated by vascular/IR No indication for surgical intervention Accelerated hypertension; Continue multiple antihypertensives Permissive hypertension per protocol Acute kidney injury on probable CKD; Due to vasomotor nephropathy Resolved, creatinine normal levels Medical noncompliance; Counseling strongly advised to comply with medications diet and follow-up visits Tobacco abuse; Smoking cessation counseling Strongly advised to quit tobacco use Nicotine patch as needed EtOH abuse; Advised to quit alcohol intake, monitor for alcohol withdrawal symptoms CIWA protocol if needed, recommend alcohol rehabilitation upon discharge DVT prophylaxis; subcu Lovenox Social issues; patient has no resources no insurance Very difficult to consider acute or subacute rehab. Discussed with case management the discharge planning Closely monitor the patient and adjust management as needed DC planning per case management 09/01/2021. CT of the brain is unremarkable. Await CTA of the brain and neck and MRI. Neurology following. Follow-up echocardiogram. Patient started on Plavix and aspirin. Lipitor increased to 80 mg daily. Await PT/ST evaluation. Patient received permissive hypertension overnight. We will start Procardia 30 mg p.o. twice daily. 09/02/2021. CTA of head/neck neck reveals occluded right ICA which may be secondary to dissection. Patient also has decreased flow in the right MCA territory. Significant narrowing seen at the origin of both vertebral arteries. Also, some irregularity of the esophagus with recommendations for esophagram. Follow-up MRI. We will consult vascular surgery for further evaluation. Neurology following 09/03/2021. The patient had signs and system consistent with a subacute CVA. CTA of the neck reveals an occlusion of the right internal carotid artery. Va scular surgery was consulted and reviewed the films at the appearance of possible thrombus within the artery. Review of the carotid duplex does not reveal a significant amount of plaque within the is also not demonstrated on the CTA of the neck, again suggesting that this may be thrombotic or embolic in nature. Vascular surgery reports that given the possibility of thrombus, we would obtain echocardiogram to rule out a cardiac source. The patient may likely need JOSE. Consider consulting cardiology for recommendations for JOSE. Given the likely thrombotic nature of the occlusion, vascular surgery would recommend adding oral anticoagulation to his statin and antiplatelet regimen. We will start Plavix 75 mg p.o. daily and Eliquis 5 mg p.o. daily after MRI of head to rule out large CVA. Vascular surgery reports no surgical intervention required. 09/04; patient restrained for safety, closely monitor for alcohol withdrawal symptoms Consultants and recommendations noted and appreciated History Interval history: Have seen and examined the patient at the bedside patient's chart and medications reviewed No new events reported per nursing Vital signs Hospitalist Physical - Constitutional Vitals: Temp Pulse Resp BP Pulse Ox 97.8 F 77 16 136/79 100 09/05/21 17:33 09/05/21 17:33 09/05/21 17:33 09/05/21 17:33 09/05/21 17:33 General appearance: Present: no acute distress, well-nourished - EENT Eyes: Present: PERRL, EOM intact - Neck Neck: Present: supple, normal ROM - Respiratory Respiratory effort: normal Respiratory: bilateral: diminished, negative: rales, rhonchi, wheezing - Cardiovascular Rhythm: regular Heart Sounds: Present: S1 & S2 - Extremities Extremities: no ischemia, No edema - Abdominal General gastrointestinal: soft, non-tender, non-distended, normal bowel sounds - Integumentary Integumentary: Present: clear, warm - Psychiatric Psychiatric: appropriate mood/affect, cooperative - Neurologic Neurologic: CNII-XII intact, moves all extremities HEART Score - HEART Score Troponin: Troponin T < 0.010 ng/mL (0.00-0.029) 08/31/21 12:42 Results - Labs CBC & Chem 7: 09/03/21 09:50 09/06/21 08:50 Labs: Laboratory Last Values WBC 6.4 K/mm3 (4.5-11.0) 09/03/21 09:50 RBC 6.02 M/mm3 (3.65-5.03) H 09/03/21 09:50 Hgb 16.0 gm/dl (11.8-15.2) H 09/03/21 09:50 Hct 50.0 % (35.5-45.6) H 09/03/21 09:50 MCV 83 fl (84-94) L 09/03/21 09:50 MCH 27 pg (28-32) L 09/03/21 09:50 MCHC 32 % (32-34) 09/03/21 09:50 RDW 15.3 % (13.2-15.2) H 09/03/21 09:50 Plt Count 298 K/mm3 (140-440) 09/03/21 09:50 Lymph % (Auto) 21.4 % (13.4-35.0) 09/03/21 09:50 [place] % (Auto) 11.7 % (0.0-7.3) H 09/03/21 09:50 Eos % (Auto) 1.3 % (0.0-4.3) 09/03/21 09:50 Baso % (Auto) 0.6 % (0.0-1.8) 09/03/21 09:50 Lymph # (Auto) 1.4 K/mm3 (1.2-5.4) 09/03/21 09:50 [place] # (Auto) 0.8 K/mm3 (0.0-0.8) 09/03/21 09:50 Eos # (Auto) 0.1 K/mm3 (0.0-0.4) 09/03/21 09:50 Baso # (Auto) 0.0 K/mm3 (0.0-0.1) 09/03/21 09:50 Seg Neutrophils % 65.0 % (40.0-70.0) 09/03/21 09:50 Seg Neutrophils # 4.2 K/mm3 (1.8-7.7) 09/03/21 09:50 ESR 1 mm/Hr (0-20) 09/02/21 12:54 Sodium 136 mmol/L (137-145) L 09/03/21 09:50 Potassium 3.7 mmol/L (3.6-5.0) 09/03/21 09:50 Chloride 100.4 mmol/L (98-107) 09/03/21 09:50 Carbon Dioxide 22 mmol/L (22-30) 09/03/21 09:50 Anion Gap 17 mmol/L 09/03/21 09:50 BUN 16 mg/dL (9-20) 09/03/21 09:50 Creatinine 1.1 mg/dL (0.8-1.3) 09/03/21 09:50 Estimated GFR > 60 ml/min 09/03/21 09:50 BUN/Creatinine Ratio 15 % 09/03/21 09:50 Glucose 89 mg/dL (75-100) 09/03/21 09:50 POC Glucose 218 mg/dL (70-105) H 09/03/21 18:34 Calcium 9.2 mg/dL (8.4-10.2) 09/03/21 09:50 Total Bilirubin 0.30 mg/dL (0.1-1.2) 08/31/21 12:42 AST 14 units/L (5-40) 08/31/21 12:42 ALT 12 units/L (7-56) 08/31/21 12:42 Alkaline Phosphatase 96 units/L (35-129) 08/31/21 12:42 Troponin T < 0.010 ng/mL (0.00-0.029) 08/31/21 12:42 Total Protein 7.4 g/dL (6.3-8.2) 08/31/21 12:42 Albumin 4.7 g/dL (3.9-5) 08/31/21 12:42 Albumin/Globulin Ratio 1.7 % 08/31/21 12:42 Triglycerides 63 mg/dL (2-149) 09/01/21 06:07 Cholesterol 240 mg/dL (50-199) H 09/01/21 06:07 LDL Cholesterol Direct 168 mg/dL (50-130) H 09/01/21 06:07 HDL Cholesterol 63 mg/dL (40-59) H 09/01/21 06:07 Cholesterol/HDL Ratio 3.80 % 09/01/21 06:07 Urine Color Straw (Yellow) 09/01/21 17:00 Urine Turbidity Clear (Clear) 09/01/21 17:00 Urine pH 6.0 (5.0-7.0) 09/01/21 17:00 Ur Specific [place] 1.044 (1.003-1.030) H 09/01/21 17:00 Urine Protein <15 mg/dl mg/dL (Negative) 09/01/21 17:00 Urine Glucose (UA) Neg mg/dL (Negative) 09/01/21 17:00 Urine Ketones Neg mg/dL (Negative) 09/01/21 17:00 Urine Blood Neg (Negative) 09/01/21 17:00 Urine Nitrite Neg (Negative) 09/01/21 17:00 Urine Bilirubin Neg (Negative) 09/01/21 17:00 Urine Urobilinogen < 2.0 mg/dL (<2.0) 09/01/21 17:00 Ur Leukocyte Esterase Neg (Negative) 09/01/21 17:00 Urine WBC (Auto) < 1.0 /HPF (0.0-6.0) 09/01/21 17:00 Urine RBC (Auto) < 1.0 /HPF (0.0-6.0) 09/01/21 17:00 Urine Mucus Few /HPF 09/01/21 17:00 Brian/IV: Voiding Method Condom Catheter Active Medications - Current Medications Current Medications: Generic Name Dose Route Start Last Admin Trade Name Freq PRN Reason Stop Dose Admin Acetaminophen 650 mg 08/31/21 16:01 09/03/21 06:54 Acetaminophen 325 Mg Tab PO 650 mg Q4H PRN Administration Pain, Mild (1-3) Albuterol 2.5 mg 08/31/21 16:01 Albuterol 2.5 Mg/3 Ml Nebu IH Q3HRT PRN Shortness Of Breath Aspirin 325 mg 09/01/21 10:00 09/05/21 09:41 Aspirin 325 Mg Tab PO 325 mg QDAY WOJCIECH Administration Atorvastatin Calcium 80 mg 09/01/21 22:00 09/04/21 21:49 Atorvastatin 40 Mg Tab PO 80 mg QHS WOJCIECH Administration Bisacodyl 10 mg 08/31/21 16:01 Bisacodyl 10 Mg Rect Supp AL QDAY PRN Constipation Enoxaparin Sodium 40 mg 09/04/21 22:00 09/04/21 21:50 Enoxaparin 40 Mg/0.4 Ml Inj SUB-Q 40 mg QDAY@2200 WOJCIECH Administration Protocol Hydralazine HCl 10 mg 09/01/21 13:07 09/03/21 06:52 Hydralazine 20 Mg/1 Ml Inj IV 10 mg Q4HR PRN Administration Blood Pressure Hydromorphone HCl 0.5 mg 08/31/21 16:01 Hydromorphone 1 Mg/1 Ml Inj IV Q23H PRN Pain , Severe (7-10) Magnesium Hydroxide 30 ml 08/31/21 16:01 Magnesium Hydroxide (Mom) Oral Liqd Udc PO Q4H PRN Constipation Metoclopramide HCl 10 mg 08/31/21 16:01 Metoclopramide 10 Mg Tab PO Q6H PRN Nausea And Vomiting Nifedipine 30 mg 09/01/21 22:00 09/05/21 09:41 Nifedipine Xl 30 Mg Tab PO 30 mg Q12HR WOJCIECH Administration Ondansetron HCl 4 mg 08/31/21 16:01 Ondansetron 4 Mg/2 Ml Inj IV Q8H PRN Nausea And Vomiting Oxycodone/Acetaminophen 1 tab 08/31/21 16:01 09/02/21 14:22 Oxycodone /Acetaminophen 5-325mg Tab PO 1 tab Q16H PRN Administration Pain, Moderate (4-6) Promethazine HCl 25 mg 08/31/21 16:01 Promethazine 25 Mg Rect Supp AL Q6H PRN Nausea And Vomiting Sodium Chloride 10 ml 08/31/21 16:01 09/04/21 09:04 Sodium Chloride 0.9% 10 Ml Flush Syringe IV 10 ml PRN PRN Administration LINE FLUSH Nutrition/Malnutrition Assess - Dietary Evaluation Nutrition/Malnutrition Findings: Nutrition Notes Start: 09/01/21 12:33 Freq: Status: Active Protocol: Document 09/01/21 12:33 JESSICA (Rec: 09/01/21 12:53 JESSICA [id number]) Nutrition Notes 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 Labs/Tests 09/01: Crea 1.6, Glu 101. Pertinent Medications 09/01: Nutritionally unremarkable. 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 Weight Status Overweight Subjective/Other Information RD consult for skin risk assessment. No reports available on Pt's PO intake of meals at the time , but MD mentioned that Pt was eating his luch without any problem, according to Progress notes. Bedside swallow evaluation passed, according to MUMTAZ swift. RN note on 09/01/21 10:15: pt. has no problem swallowing tolerated food well. Pt is on Room Air, O2 saturation @ 100%, according to Physical Assessment History notes. Pt has missing teeth, according to Physical Assessment History notes. Pt shows no signs of concern for skin risk at the time, according to Physical Assessment History notes. Percent of energy/protein needs met: Prescribed Regular Diet provides for energy/protein needs (2,289 Kcal/89 g) during LOS. Burn Absent Trauma Absent GI Symptoms Nausea,Vomiting Food Allergy No Skin Integrity/Comment Assessment WNL. Minimum of two criteria No #1 Nutrition Diagnosis No nutrition diagnosis at this time Is patient on ventilator? No Is Patient Ambulatory and/or Out of Bed Yes REE-([place]-ambulatory/OOB) [ 1941.719 NUTR.MSJOOB] Kcal/Kg value to use for calculation 23 Approximate Energy Requirements Using 1737 kcal/Kg Calculation Used for Recommendations Kcal/kg Additional Notes Protein: 0.8-1.2 g/Kg ABW; 61- 91 g/day. Fluids: 1 ml/Kcal, or as per MD. Nutrition Intervention Change Diet Order: Continue Regular Diet. Revisit per MD consult or patient Sign Off request: Additional Comments Continue monitoring food tolerance, %PO intake of meals , and BM.
[2021-09-05] MEDS: ENOXAPARIN 40 MG/0.4 ML INJ SUB-Q SCH (22:03)
[2021-09-06 09:22] LABS: BUN/Creatinine Ratio 16; Blood Urea Nitrogen 19 mg/dL (9-20); Calcium 9.7 mg/dL (8.4-10.2); Hemolysis Index 22
[2021-09-06] MEDS: ASPIRIN 325 MG TAB PO SCH (10:19)
[2021-09-06] MEDS: NIFEdipine XL 30 MG TAB PO SCH ×2 (10:19→21:05)
--- NOTE | 2021-09-06 18:32 | Progress Note ---
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 Patient states that he ignored the symptoms and thought that it would get better. Patient reported difficulty grasping objects in his left hand and maintaining objects in his left hand. 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 All lab and imaging studies reviewed. The patient was found to have a focal neurologic deficit at the time of his arrival. A code stroke was called and the patient was initiated on CVA protocol and admitted to medical floor due to increased risk of worsening symptoms. Teleneurology consulted. Patient virgil med outside the window for tPA. Acute CVA; extensive work-up reviewed Aspirin and statin Physical therapy occupational therapy rehabilitation Follow-up pending neuro work-up Neurology evaluation noted and appreciated PT and OT evaluated the patient Both services recommend acute rehab placement Discharge planning per case management Right internal carotid artery stenosis; Evaluated by vascular/IR No indication for surgical intervention Accelerated hypertension; Continue multiple antihypertensives Permissive hypertension per protocol Acute kidney injury on probable CKD; Due to vasomotor nephropathy Resolved, creatinine normal levels Medical noncompliance; Counseling strongly advised to comply with medications diet and follow-up visits Tobacco abuse; Smoking cessation counseling Strongly advised to quit tobacco use Nicotine patch as needed EtOH abuse; Advised to quit alcohol intake, monitor for alcohol withdrawal symptoms CIWA protocol if needed, recommend alcohol rehabilitation upon discharge DVT prophylaxis; subcu Lovenox Social issues; patient has no resources no insurance Very difficult to consider acute or subacute rehab. Discussed with case management the discharge planning Closely monitor the patient and adjust management as needed DC planning per case management 09/01/2021. CT of the brain is unremarkable. Await CTA of the brain and neck and MRI. Neurology following. Follow-up echocardiogram. Patient started on Plavix and aspirin. Lipitor increased to 80 mg daily. Await PT/ST evaluation. Patient received permissive hypertension overnight. We will start Procardia 30 mg p.o. twice daily. 09/02/2021. CTA of head/neck neck reveals occluded right ICA which may be secondary to dissection. Patient also has decreased flow in the right MCA territory. Significant narrowing seen at the origin of both vertebral arteries. Also, some irregularity of the esophagus with recommendations for esophagram. Follow-up MRI. We will consult vascular surgery for further evaluation. Neurology following 09/03/2021. The patient had signs and system consistent with a subacute CVA. CTA of the neck reveals an occlusion of the right internal carotid artery. Va scular surgery was consulted and reviewed the films at the appearance of possible thrombus within the artery. Review of the carotid duplex does not reveal a significant amount of plaque within the is also not demonstrated on the CTA of the neck, again suggesting that this may be thrombotic or embolic in nature. Vascular surgery reports that given the possibility of thrombus, we would obtain echocardiogram to rule out a cardiac source. The patient may likely need JOSE. Consider consulting cardiology for recommendations for JOSE. Given the likely thrombotic nature of the occlusion, vascular surgery would recommend adding oral anticoagulation to his statin and antiplatelet regimen. We will start Plavix 75 mg p.o. daily and Eliquis 5 mg p.o. daily after MRI of head to rule out large CVA. Vascular surgery reports no surgical intervention required. 09/04; patient restrained for safety, closely monitor for alcohol withdrawal symptoms Consultants and recommendations noted and appreciated 09/06; patient is off restraints, PT OT recommended acute rehab DC planning per case management Patient does not have insurance, no payer source, social issues Hospitalist Physical - Constitutional Vitals: Temp Pulse Resp BP Pulse Ox 97.8 F 93 H 18 144/81 96 09/06/21 12:18 09/06/21 12:18 09/06/21 12:18 09/06/21 12:18 09/06/21 12:18 General appearance: Present: no acute distress, well-nourished - EENT Eyes: Present: PERRL, EOM intact - Neck Neck: Present: supple, normal ROM - Respiratory Respiratory effort: normal Respiratory: bilateral: diminished, negative: rales, rhonchi, wheezing - Cardiovascular Rhythm: regular Heart Sounds: Present: S1 & S2 - Extremities Extremities: no ischemia, No edema - Abdominal General gastrointestinal: soft, non-tender, non-distended, normal bowel sounds - Integumentary Integumentary: Present: clear, warm - Psychiatric Psychiatric: appropriate mood/affect, cooperative - Neurologic Neurologic: moves all extremities HEART Score - HEART Score Troponin: Troponin T < 0.010 ng/mL (0.00-0.029) 08/31/21 12:42 Results - Labs CBC & Chem 7: 09/03/21 09:50 09/06/21 08:50 Labs: Laboratory Last Values WBC 6.4 K/mm3 (4.5-11.0) 09/03/21 09:50 RBC 6.02 M/mm3 (3.65-5.03) H 09/03/21 09:50 Hgb 16.0 gm/dl (11.8-15.2) H 09/03/21 09:50 Hct 50.0 % (35.5-45.6) H 09/03/21 09:50 MCV 83 fl (84-94) L 09/03/21 09:50 MCH 27 pg (28-32) L 09/03/21 09:50 MCHC 32 % (32-34) 09/03/21 09:50 RDW 15.3 % (13.2-15.2) H 09/03/21 09:50 Plt Count 298 K/mm3 (140-440) 09/03/21 09:50 Lymph % (Auto) 21.4 % (13.4-35.0) 09/03/21 09:50 [place] % (Auto) 11.7 % (0.0-7.3) H 09/03/21 09:50 Eos % (Auto) 1.3 % (0.0-4.3) 09/03/21 09:50 Baso % (Auto) 0.6 % (0.0-1.8) 09/03/21 09:50 Lymph # (Auto) 1.4 K/mm3 (1.2-5.4) 09/03/21 09:50 [place] # (Auto) 0.8 K/mm3 (0.0-0.8) 09/03/21 09:50 Eos # (Auto) 0.1 K/mm3 (0.0-0.4) 09/03/21 09:50 Baso # (Auto) 0.0 K/mm3 (0.0-0.1) 09/03/21 09:50 Seg Neutrophils % 65.0 % (40.0-70.0) 09/03/21 09:50 Seg Neutrophils # 4.2 K/mm3 (1.8-7.7) 09/03/21 09:50 ESR 1 mm/Hr (0-20) 09/02/21 12:54 Sodium 135 mmol/L (137-145) L 09/06/21 08:50 Potassium 3.9 mmol/L (3.6-5.0) 09/06/21 08:50 Chloride 100.9 mmol/L (98-107) 09/06/21 08:50 Carbon Dioxide 25 mmol/L (22-30) 09/06/21 08:50 Anion Gap 13 mmol/L 09/06/21 08:50 BUN 19 mg/dL (9-20) 09/06/21 08:50 Creatinine 1.2 mg/dL (0.8-1.3) 09/06/21 08:50 Estimated GFR > 60 ml/min 09/06/21 08:50 BUN/Creatinine Ratio 16 % 09/06/21 08:50 Glucose 118 mg/dL (75-100) H 09/06/21 08:50 POC Glucose 218 mg/dL (70-105) H 09/03/21 18:34 Calcium 9.7 mg/dL (8.4-10.2) 09/06/21 08:50 Phosphorus 3.00 mg/dL (2.5-4.5) 09/06/21 08:50 Magnesium 2.20 mg/dL (1.7-2.3) 09/06/21 08:50 Total Bilirubin 0.30 mg/dL (0.1-1.2) 08/31/21 12:42 AST 14 units/L (5-40) 08/31/21 12:42 ALT 12 units/L (7-56) 08/31/21 12:42 Alkaline Phosphatase 96 units/L (35-129) 08/31/21 12:42 Troponin T < 0.010 ng/mL (0.00-0.029) 08/31/21 12:42 Total Protein 7.4 g/dL (6.3-8.2) 08/31/21 12:42 Albumin 4.7 g/dL (3.9-5) 08/31/21 12:42 Albumin/Globulin Ratio 1.7 % 08/31/21 12:42 Triglycerides 63 mg/dL (2-149) 09/01/21 06:07 Cholesterol 240 mg/dL (50-199) H 09/01/21 06:07 LDL Cholesterol Direct 168 mg/dL (50-130) H 09/01/21 06:07 HDL Cholesterol 63 mg/dL (40-59) H 09/01/21 06:07 Cholesterol/HDL Ratio 3.80 % 09/01/21 06:07 Urine Color Straw (Yellow) 09/01/21 17:00 Urine Turbidity Clear (Clear) 09/01/21 17:00 Urine pH 6.0 (5.0-7.0) 09/01/21 17:00 Ur Specific [place] 1.044 (1.003-1.030) H 09/01/21 17:00 Urine Protein <15 mg/dl mg/dL (Negative) 09/01/21 17:00 Urine Glucose (UA) Neg mg/dL (Negative) 09/01/21 17:00 Urine Ketones Neg mg/dL (Negative) 09/01/21 17:00 Urine Blood Neg (Negative) 09/01/21 17:00 Urine Nitrite Neg (Negative) 09/01/21 17:00 Urine Bilirubin Neg (Negative) 09/01/21 17:00 Urine Urobilinogen < 2.0 mg/dL (<2.0) 09/01/21 17:00 Ur Leukocyte Esterase Neg (Negative) 09/01/21 17:00 Urine WBC (Auto) < 1.0 /HPF (0.0-6.0) 09/01/21 17:00 Urine RBC (Auto) < 1.0 /HPF (0.0-6.0) 09/01/21 17:00 Urine Mucus Few /HPF 09/01/21 17:00 Brian/IV: Voiding Method Condom Catheter Active Medications - Current Medications Current Medications: Generic Name Dose Route Start Last Admin Trade Name Freq PRN Reason Stop Dose Admin Acetaminophen 650 mg 08/31/21 16:01 09/03/21 06:54 Acetaminophen 325 Mg Tab PO 650 mg Q4H PRN Administration Pain, Mild (1-3) Albuterol 2.5 mg 08/31/21 16:01 Albuterol 2.5 Mg/3 Ml Nebu IH Q3HRT PRN Shortness Of Breath Aspirin 325 mg 09/01/21 10:00 09/06/21 10:19 Aspirin 325 Mg Tab PO 325 mg QDAY WOJCIECH Administration Atorvastatin Calcium 80 mg 09/01/21 22:00 09/05/21 22:03 Atorvastatin 40 Mg Tab PO 80 mg QHS WOJCIECH Administration Bisacodyl 10 mg 08/31/21 16:01 Bisacodyl 10 Mg Rect Supp ME QDAY PRN Constipation Enoxaparin Sodium 40 mg 09/04/21 22:00 09/05/21 22:03 Enoxaparin 40 Mg/0.4 Ml Inj SUB-Q 40 mg QDAY@2200 WOJCIECH Administration Protocol Hydralazine HCl 10 mg 09/01/21 13:07 09/03/21 06:52 Hydralazine 20 Mg/1 Ml Inj IV 10 mg Q4HR PRN Administration Blood Pressure Magnesium Hydroxide 30 ml 08/31/21 16:01 Magnesium Hydroxide (Mom) Oral Liqd Udc PO Q4H PRN Constipation Metoclopramide HCl 10 mg 08/31/21 16:01 Metoclopramide 10 Mg Tab PO Q6H PRN Nausea And Vomiting Nifedipine 30 mg 09/01/21 22:00 09/06/21 10:19 Nifedipine Xl 30 Mg Tab PO 30 mg Q12HR WOJCIECH Administration Ondansetron HCl 4 mg 08/31/21 16:01 Ondansetron 4 Mg/2 Ml Inj IV Q8H PRN Nausea And Vomiting Promethazine HCl 25 mg 08/31/21 16:01 Promethazine 25 Mg Rect Supp ME Q6H PRN Nausea And Vomiting Sodium Chloride 10 ml 08/31/21 16:01 09/06/21 10:19 Sodium Chloride 0.9% 10 Ml Flush Syringe IV 10 ml PRN PRN Administration LINE FLUSH Nutrition/Malnutrition Assess - Dietary Evaluation Nutrition/Malnutrition Findings: Nutrition Notes Start: 09/01/21 12:33 Freq: Status: Active Protocol: Document 09/01/21 12:33 JESSICA (Rec: 09/01/21 12:53 JESSICA [id number]) Nutrition Notes 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 Labs/Tests 09/01: Crea 1.6, Glu 101. Pertinent Medications 09/01: Nutritionally unremarkable. 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 Weight Status Overweight Subjective/Other Information RD consult for skin risk assessment. No reports available on Pt's PO intake of meals at the time , but mentioned that Pt was eating his luch without any problem, according to Progress notes. Bedside swallow evaluation passed, according to MUMTA[employer] swift. RN note on 09/01/21 10:15: pt. has no problem swallowing tolerated food well. Pt is on Room Air, O2 saturation @ 100%, according to Physical Assessment History notes. Pt has missing teeth, according to Physical Assessment History notes. Pt shows no signs of concern for skin risk at the time, according to Physical Assessment History notes. Percent of energy/protein needs met: Prescribed Regular Diet provides for energy/protein needs (2,289 Kcal/89 g) during LOS. Burn Absent Trauma Absent GI Symptoms Nausea,Vomiting Food Allergy No Skin Integrity/Comment Assessment WNL. Minimum of two criteria No #1 Nutrition Diagnosis No nutrition diagnosis at this time Is patient on ventilator? No Is Patient Ambulatory and/or Out of Bed Yes REE-([facility]-ambulatory/OOB) [ 1941.719 NUTR.MSJOOB] Kcal/Kg value to use for calculation 23 Approximate Energy Requirements Using 1737 kcal/Kg Calculation Used for Recommendations Kcal/kg Additional Notes Protein: 0.8-1.2 g/Kg ABW; 61- 91 g/day. Fluids: 1 ml/Kcal, or as per MD. Nutrition Intervention Change Diet Order: Continue Regular Diet. Revisit per MD consult or patient Sign Off request: Additional Comments Continue monitoring food tolerance, %PO intake of meals , and BM.
[2021-09-06] MEDS: ENOXAPARIN 40 MG/0.4 ML INJ SUB-Q SCH (21:00)
--- NOTE | 2021-09-07 08:40 | Progress Note ---
Assessment and Plan Assessment and plan: 66 YO Male with Nicotine Dependence, HTN presents to ED for evaluation of sudden onset left arm weakness 3 weeks ago [employer] [employer]. Patient states that he ignored the symptoms and thought that it would get better. Patient reported difficulty grasping objects in his left hand and maintaining objects in his left hand. Patient also reported new onset weakness in his left leg over the past 3 days [employer]. All lab and imaging studies reviewed. The patient was found to have a focal neurologic deficit at the time of his arrival. A code stroke was called and the patient was initiated on CVA protocol and admitted to medical floor due to increased risk of worsening symptoms. Teleneurology consulted. Patient virgil med outside the window for tPA. Acute CVA; extensive work-up reviewed Aspirin and statin Physical therapy occupational therapy rehabilitation Follow-up pending neuro work-up Neurology evaluation noted and appreciated PT and OT evaluated the patient Both services recommend acute rehab placement Discharge planning per case management Left hemiplegia ; Physical therapy, Occupational Therapy, rehabilitation right internal carotid artery stenosis; Evaluated by vascular/IR No indication for surgical intervention Vascular recommended Eliquis 5 mg every 12 hours Accelerated hypertension; Continue multiple antihypertensives Permissive hypertension per protocol Acute kidney injury on probable CKD; Due to vasomotor nephropathy Resolved, creatinine normal levels Medical noncompliance; Counseling strongly advised to comply with medications diet and follow-up visits Tobacco abuse; Smoking cessation counseling Strongly advised to quit tobacco use Nicotine patch as needed EtOH abuse; Advised to quit alcohol intake, monitor for alcohol withdrawal symptoms CIWA protocol if needed, recommend alcohol rehabilitation upon discharge DVT prophylaxis; subcu Lovenox Social issues; patient has no resources no insurance Very difficult to consider acute or subacute rehab. Discussed with case management the discharge planning Closely monitor the patient and adjust management as needed DC planning per case management 09/01/2021. CT of the brain is unremarkable. Await CTA of the brain and neck and MRI. Neurology following. Follow-up echocardiogram. Patient started on Plavix and aspirin. Lipitor increased to 80 mg daily. Await PT/ST evaluation. Patient received permissive hypertension overnight. We will start Procardia 30 mg p.o. twice daily. 09/02/2021. CTA of head/neck neck reveals occluded right ICA which may be secondary to dissection. Patient also has decreased flow in the right MCA territory. Significant narrowing seen at the origin of both vertebral arteries. Also, some irregularity of the esophagus with recommendations for esophagram. Follow-up MRI. We will consult vascular surgery for further evaluation. Neurology following 09/03/2021. The patient had signs and system consistent with a subacute CVA. CTA of the neck reveals an occlusion of the right internal carotid artery. Vascular surgery was consulted and reviewed the films at the appearance of possible thrombus within the artery. Review of the carotid duplex does not rev eal a significant amount of plaque within the is also not demonstrated on the CTA of the neck, again suggesting that this may be thrombotic or embolic in nature. Vascular surgery reports that given the possibility of thrombus, we would obtain echocardiogram to rule out a cardiac source. The patient may likely need JOSE. Consider consulting cardiology for recommendations for JOSE. Given the likely thrombotic nature of the occlusion, vascular surgery would recommend adding oral anticoagulation to his statin and antiplatelet regimen. We will start Plavix 75 mg p.o. daily and Eliquis 5 mg p.o. daily after MRI of head to rule out large CVA. Vascular surgery reports no surgical intervention required. 09/04; patient restrained for safety, closely monitor for alcohol withdrawal symptoms Consultants and recommendations noted and appreciated 09/06; patient is off restraints, PT OT recommended acute rehab DC planning per case management Patient does not have insurance, no payer source, social issues 09/07/21; vascular recommended Eliquis 5 mg twice a day for complete occlusion of carotid artery In addition to aspirin or Plavix. DC planning per case management History Interval history: Seen and examined the patient at the bedside Patient's chart and medications reviewed Patient feels better Left-sided hemiplegia Vital signs reviewed Hospitalist Physical - Constitutional Vitals: Temp Pulse Resp BP Pulse Ox 97.7 F 71 20 153/74 100 09/07/21 06:29 09/07/21 06:29 09/07/21 06:29 09/07/21 06:29 09/07/21 06:29 General appearance: Present: no acute distress, well-nourished - EENT Eyes: Present: PERRL, EOM intact - Neck Neck: Present: supple, normal ROM - Respiratory Respiratory effort: normal Respiratory: bilateral: diminished, negative: rales, rhonchi, wheezing - Cardiovascular Rhythm: regular Heart Sounds: Present: S1 & S2 - Extremities Extremities: no ischemia, No edema - Abdominal General gastrointestinal: soft, non-tender, non-distended, normal bowel sounds - Integumentary Integumentary: Present: clear, warm - Psychiatric Psychiatric: appropriate mood/affect, cooperative - Neurologic Neurologic: CNII-XII intact, moves all extremities HEART Score - HEART Score Troponin: Troponin T < 0.010 ng/mL (0.00-0.029) 08/31/21 12:42 Results - Labs CBC & Chem 7: 09/03/21 09:50 05 08:50 Labs: Laboratory Last Values WBC 6.4 K/mm3 (4.5-11.0) 09/03/21 09:50 RBC 6.02 M/mm3 (3.65-5.03) H 09/03/21 09:50 Hgb 16.0 gm/dl (11.8-15.2) H 09/03/21 09:50 Hct 50.0 % (35.5-45.6) H 09/03/21 09:50 MCV 83 fl (84-94) L 09/03/21 09:50 MCH 27 pg (28-32) L 09/03/21 09:50 MCHC 32 % (32-34) 09/03/21 09:50 RDW 15.3 % (13.2-15.2) H 09/03/21 09:50 Plt Count 298 K/mm3 (140-440) 09/03/21 09:50 Lymph % (Auto) 21.4 % (13.4-35.0) 09/03/21 09:50 [place] % (Auto) 11.7 % (0.0-7.3) H 09/03/21 09:50 Eos % (Auto) 1.3 % (0.0-4.3) 09/03/21 09:50 Baso % (Auto) 0.6 % (0.0-1.8) 09/03/21 09:50 Lymph # (Auto) 1.4 K/mm3 (1.2-5.4) 09/03/21 09:50 [place] # (Auto) 0.8 K/mm3 (0.0-0.8) 09/03/21 09:50 Eos # (Auto) 0.1 K/mm3 (0.0-0.4) 09/03/21 09:50 Baso # (Auto) 0.0 K/mm3 (0.0-0.1) 09/03/21 09:50 Seg Neutrophils % 65.0 % (40.0-70.0) 09/03/21 09:50 Seg Neutrophils # 4.2 K/mm3 (1.8-7.7) 09/03/21 09:50 ESR 1 mm/Hr (0-20) 09/02/21 12:54 Sodium 135 mmol/L (137-145) L 09/06/21 08:50 Potassium 3.9 mmol/L (3.6-5.0) 09/06/21 08:50 Chloride 100.9 mmol/L (98-107) 09/06/21 08:50 Carbon Dioxide 25 mmol/L (22-30) 09/06/21 08:50 Anion Gap 13 mmol/L 09/06/21 08:50 BUN 19 mg/dL (9-20) 09/06/21 08:50 Creatinine 1.2 mg/dL (0.8-1.3) 09/06/21 08:50 Estimated GFR > 60 ml/min 09/06/21 08:50 BUN/Creatinine Ratio 16 % 09/06/21 08:50 Glucose 118 mg/dL (75-100) H 09/06/21 08:50 POC Glucose 218 mg/dL (70-105) H 09/03/21 18:34 Calcium 9.7 mg/dL (8.4-10.2) 09/06/21 08:50 Phosphorus 3.00 mg/dL (2.5-4.5) 09/06/21 08:50 Magnesium 2.20 mg/dL (1.7-2.3) 09/06/21 08:50 Total Bilirubin 0.30 mg/dL (0.1-1.2) 08/31/21 12:42 AST 14 units/L (5-40) 08/31/21 12:42 ALT 12 units/L (7-56) 08/31/21 12:42 Alkaline Phosphatase 96 units/L (35-129) 08/31/21 12:42 Troponin T < 0.010 ng/mL (0.00-0.029) 08/31/21 12:42 Total Protein 7.4 g/dL (6.3-8.2) 08/31/21 12:42 Albumin 4.7 g/dL (3.9-5) 08/31/21 12:42 Albumin/Globulin Ratio 1.7 % 08/31/21 12:42 Triglycerides 63 mg/dL (2-149) 09/01/21 06:07 Cholesterol 240 mg/dL (50-199) H 09/01/21 06:07 LDL Cholesterol Direct 168 mg/dL (50-130) H 09/01/21 06:07 HDL Cholesterol 63 mg/dL (40-59) H 09/01/21 06:07 Cholesterol/HDL Ratio 3.80 % 09/01/21 06:07 Urine Color Straw (Yellow) 09/01/21 17:00 Urine Turbidity Clear (Clear) 09/01/21 17:00 Urine pH 6.0 (5.0-7.0) 09/01/21 17:00 Ur Specific [place] 1.044 (1.003-1.030) H 09/01/21 17:00 Urine Protein <15 mg/dl mg/dL (Negative) 09/01/21 17:00 Urine Glucose (UA) Neg mg/dL (Negative) 09/01/21 17:00 Urine Ketones Neg mg/dL (Negative) 09/01/21 17:00 Urine Blood Neg (Negative) 09/01/21 17:00 Urine Nitrite Neg (Negative) 09/01/21 17:00 Urine Bilirubin Neg (Negative) 09/01/21 17:00 Urine Urobilinogen < 2.0 mg/dL (<2.0) 09/01/21 17:00 Ur Leukocyte Esterase Neg (Negative) 09/01/21 17:00 Urine WBC (Auto) < 1.0 /HPF (0.0-6.0) 09/01/21 17:00 Urine RBC (Auto) < 1.0 /HPF (0.0-6.0) 09/01/21 17:00 Urine Mucus Few /HPF 09/01/21 17:00 Brian/IV: Voiding Method Incontinent Active Medications - Current Medications Current Medications: Generic Name Dose Route Start Last Admin Trade Name Freq PRN Reason Stop Dose Admin Acetaminophen 650 mg 08/31/21 16:01 09/03/21 06:54 Acetaminophen 325 Mg Tab PO 650 mg Q4H PRN Administration Pain, Mild (1-3) Albuterol 2.5 mg 08/31/21 16:01 Albuterol 2.5 Mg/3 Ml Nebu IH Q3HRT PRN Shortness Of Breath Aspirin 325 mg 09/01/21 10:00 09/06/21 10:19 Aspirin 325 Mg Tab PO 325 mg QDAY WOJCIECH Administration Atorvastatin Calcium 80 mg 09/01/21 22:00 09/06/21 21:01 Atorvastatin 40 Mg Tab PO 80 mg QHS WOJCIECH Administration Bisacodyl 10 mg 08/31/21 16:01 Bisacodyl 10 Mg Rect Supp IL QDAY PRN Constipation Enoxaparin Sodium 40 mg 09/04/21 22:00 09/06/21 21:00 Enoxaparin 40 Mg/0.4 Ml Inj SUB-Q 40 mg QDAY@2200 WOJCIECH Administration Protocol Hydralazine HCl 10 mg 09/01/21 13:07 09/03/21 06:52 Hydralazine 20 Mg/1 Ml Inj IV 10 mg Q4HR PRN Administration Blood Pressure Magnesium Hydroxide 30 ml 08/31/21 16:01 Magnesium Hydroxide (Mom) Oral Liqd Udc PO Q4H PRN Constipation Metoclopramide HCl 10 mg 08/31/21 16:01 Metoclopramide 10 Mg Tab PO Q6H PRN Nausea And Vomiting Nifedipine 30 mg 09/01/21 22:00 09/06/21 21:05 Nifedipine Xl 30 Mg Tab PO 30 mg Q12HR WOJCIECH Administration Ondansetron HCl 4 mg 08/31/21 16:01 Ondansetron 4 Mg/2 Ml Inj IV Q8H PRN Nausea And Vomiting Promethazine HCl 25 mg 08/31/21 16:01 Promethazine 25 Mg Rect Supp [place] Q6H PRN Nausea And Vomiting Sodium Chloride 10 ml 08/31/21 16:01 09/06/21 10:19 Sodium Chloride 0.9% 10 Ml Flush Syringe IV 10 ml PRN PRN Administration LINE FLUSH Nutrition/Malnutrition Assess - Dietary Evaluation Nutrition/Malnutrition Findings: Nutrition Notes Start: 09/01/21 12:33 Freq: Status: Active Protocol: Document 09/01/21 12:33 JESSICA (Rec: 09/01/21 12:53 JESSICA [id number]) Nutrition Notes 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 Labs/Tests 09/01: Crea 1.6, Glu 101. Pertinent Medications 09/01: Nutritionally unremarkable. Height 5 ft 7 in Weight 75.5 kg [place] Body Weight (kg) 67.27 BMI 26.0 Intake Prior to Admission Good Weight change and time frame Pt denies having loss body weight [employer] [facility]. Weight Status Overweight Subjective/Other Information RD consult for skin risk assessment. No reports available on Pt's PO intake of meals at the time , but MD mentioned that Pt was eating his luch without any problem, according to Progress notes. Bedside swallow evaluation passed, according to RN jeniffer. RN note on 09/01/21 10:15: pt. has no problem swallowing tolerated food well. Pt is on Room Air, O2 saturation @ 100%, according to Physical Assessment History notes. Pt has missing teeth, according to Physical Assessment History notes. Pt shows no signs of concern for skin risk at the time, according to Physical Assessment History notes. Percent of energy/protein needs met: Prescribed Regular Diet provides for energy/protein needs (2,289 Kcal/89 g) during LOS. Burn Absent Trauma Absent GI Symptoms Nausea,Vomiting Food Allergy No Skin Integrity/Comment Assessment WNL. Minimum of two criteria No #1 Nutrition Diagnosis No nutrition diagnosis at this time Is patient on ventilator? No Is Patient Ambulatory and/or Out of Bed Yes REE-([facility]-ambulatory/OOB) [ 1941.719 [id number]] Kcal/Kg value to use for calculation 23 Approximate Energy Requirements Using 1737 kcal/Kg Calculation Used for Recommendations Kcal/kg Additional Notes Protein: 0.8-1.2 g/Kg ABW; 61- 91 g/day. Fluids: 1 ml/Kcal, or as per MD. Nutrition Intervention Change Diet Order: Continue Regular Diet. Revisit per MD consult or patient Sign Off request: Additional Comments Continue monitoring food tolerance, %PO intake of meals , and BM.
[2021-09-07] MEDS: ASPIRIN 325 MG TAB PO SCH (09:21)
[2021-09-07] MEDS: NIFEdipine XL 30 MG TAB PO SCH ×2 (09:21→21:11)
[2021-09-07] MEDS: ENOXAPARIN 40 MG/0.4 ML INJ SUB-Q SCH (21:11)
--- NOTE | 2021-09-08 08:49 | Progress Note ---
Assessment and Plan Assessment and plan: 66 YO Male with Nicotine Dependence, HTN presents to ED for evaluation of sudden onset left arm weakness [address] [employer]URITY [employer]ER. Patient states that he ignored the symptoms and thought that it would get better. Patient reported difficulty grasping objects in his left hand and maintaining objects in his left hand. 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 All lab and imaging studies reviewed. The patient was found to have a focal neurologic deficit at the time of his arrival. A code stroke was called and the patient was initiated on CVA protocol and admitted to medical floor due to increased risk of worsening symptoms. Teleneurology consulted. Patient virgil med outside the window for tPA. Acute CVA; extensive work-up reviewed Aspirin and statin Physical therapy occupational therapy rehabilitation Follow-up pending neuro work-up Neurology evaluation noted and appreciated PT and OT evaluated the patient Both services recommend acute rehab placement Discharge planning per case management Left hemiplegia ; Physical therapy, Occupational Therapy, rehabilitation right internal carotid artery stenosis; Evaluated by vascular/IR No indication for surgical intervention Vascular recommended Eliquis 5 mg every 12 hours Started Eliquis 5 mg every 12 hours[confirmed with pharmacy] Mild hyponatremia; Closely monitor electrolytes, consider normal saline hydration Accelerated hypertension; Continue multiple antihypertensives Permissive hypertension per protocol Acute kidney injury on probable CKD; Due to vasomotor nephropathy Resolved, creatinine normal levels Medical noncompliance; Counseling strongly advised to comply with medications diet and follow-up visits Tobacco abuse; Smoking cessation counseling Strongly advised to quit tobacco use Nicotine patch as needed EtOH abuse; Advised to quit alcohol intake, monitor for alcohol withdrawal symptoms CIWA protocol if needed, recommend alcohol rehabilitation upon discharge DVT prophylaxis; subcu Lovenox Social issues; patient has no resources no insurance Very difficult to consider acute or subacute rehab. Discussed with case management the discharge planning Closely monitor the patient and adjust management as needed DC planning per case management 09/01/2021. CT of the brain is unremarkable. Await CTA of the brain and neck and MRI. Neurology following. Follow-up echocardiogram. Patient started on Plavix and aspirin. Lipitor increased to 80 mg daily. Await PT/ST evaluation. Patient received permissive hypertension overnight. We will start Procardia 30 mg p.o. twice daily. 09/02/2021. CTA of head/neck neck reveals occluded right ICA which may be secondary to dissection. Patient also has decreased flow in the right MCA territory. Significant narrowing seen at the origin of both vertebral arteries. Also, some irregularity of the esophagus with recommendations for esophagram. Follow-up MRI. We will consult vascular surgery for further evaluation. Neurology following 09/03/2021. The patient had signs and system consistent with a subacute CVA. CTA of the neck reveals an occlusion of the right internal carotid artery. Vascular surgery was consulted and reviewed the films at the appearance of possible thrombus within the artery. Review of the carotid duplex does not reveal a significant amount of plaque within the is also not demonstrated on the CTA of the neck, again suggesting that this may be thrombotic or embolic in nature. Vascular surgery reports that given the possibility of thrombus, we would obtain echocardiogram to rule out a cardiac source. The patient may likely need JOSE. Consider consulting cardiology for recommendations for JOSE. Given the likely thrombotic nature of the occlusion, vascular surgery would recommend adding oral anticoagulation to his statin and antiplatelet regimen. We will start Plavix 75 mg p.o. daily and Eliquis 5 mg p.o. daily after MRI of head to rule out large CVA. Vascular surgery reports no surgical intervention required. 09/04; patient restrained for safety, closely monitor for alcohol withdrawal symptoms Consultants and recommendations noted and appreciated 09/06; patient is off restraints, PT OT recommended acute rehab DC planning per case management Patient does not have insurance, no payer source, social issues 09/07/21; vascular recommended Eliquis 5 mg twice a day for complete occlusion of carotid artery In addition to aspirin or Plavix. DC planning per case management 09/08/21; started Eliquis 5 mg twice a day recommended by vascular for right carotid oximetry occlusion I DC'd subcu Lovenox DVT prophylaxis, patient is on antiplatelets Plavix for his acute CVA We will closely monitor for any evidence of bleeding Pending placement, social issues, no resources History Interval history: Patient with acute CVA with left-sided hemiplegia , right internal carotid artery stenosis , awaiting subacute versus acute rehab placement, patient has social issues no payer source, CM assisting with discharge planning I have seen and examined the patient at the bedside patient's chart and medications reviewed Patient feels better no new complaints No new complaints Vital signs noted Hospitalist Physical - Constitutional Vitals: Temp Pulse Resp BP Pulse Ox 98.0 F 69 18 122/66 98 09/07/21 22:39 09/07/21 22:39 09/07/21 22:39 09/07/21 22:39 09/07/21 22:39 General appearance: Present: no acute distress, well-nourished, other (Left- sided hemiplegia) - EENT Eyes: Present: PERRL, EOM intact - Neck Neck: Present: supple, normal ROM - Respiratory Respiratory effort: normal Respiratory: bilateral: diminished, negative: rales, rhonchi, wheezing - Cardiovascular Rhythm: regular Heart Sounds: Present: S1 & S2 - Extremities Extremities: no ischemia, No edema - Abdominal General gastrointestinal: soft, non-tender, non-distended, normal bowel sounds - Integumentary Integumentary: Present: clear, warm - Psychiatric Psychiatric: appropriate mood/affect, cooperative - Neurologic Neurologic: moves all extremities (Acute CVA with left-sided hemiplegia) HEART Score - HEART Score Troponin: Troponin T < 0.010 ng/mL (0.00-0.029) 08/31/21 12:42 Results - Labs CBC & Chem 7: 09/03/21 09:50 09/06/21 08:50 Labs: Laboratory Last Values WBC 6.4 K/mm3 (4.5-11.0) 09/03/21 09:50 RBC 6.02 M/mm3 (3.65-5.03) H 09/03/21 09:50 Hgb 16.0 gm/dl (11.8-15.2) H 09/03/21 09:50 Hct 50.0 % (35.5-45.6) H 09/03/21 09:50 MCV 83 fl (84-94) L 09/03/21 09:50 MCH 27 pg (28-32) L 09/03/21 09:50 MCHC 32 % (32-34) 09/03/21 09:50 RDW 15.3 % (13.2-15.2) H 09/03/21 09:50 Plt Count 298 K/mm3 (140-440) 09/03/21 09:50 Lymph % (Auto) 21.4 % (13.4-35.0) 09/03/21 09:50 [place] % (Auto) 11.7 % (0.0-7.3) H 09/03/21 09:50 Eos % (Auto) 1.3 % (0.0-4.3) 09/03/21 09:50 Baso % (Auto) 0.6 % (0.0-1.8) 09/03/21 09:50 Lymph # (Auto) 1.4 K/mm3 (1.2-5.4) 09/03/21 09:50 [place] # (Auto) 0.8 K/mm3 (0.0-0.8) 09/03/21 09:50 Eos # (Auto) 0.1 K/mm3 (0.0-0.4) 09/03/21 09:50 Baso # (Auto) 0.0 K/mm3 (0.0-0.1) 09/03/21 09:50 Seg Neutrophils % 65.0 % (40.0-70.0) 09/03/21 09:50 Seg Neutrophils # 4.2 K/mm3 (1.8-7.7) 09/03/21 09:50 ESR 1 mm/Hr (0-20) 09/02/21 12:54 Sodium 135 mmol/L (137-145) L 09/06/21 08:50 Potassium 3.9 mmol/L (3.6-5.0) 09/06/21 08:50 Chloride 100.9 mmol/L (98-107) 09/06/21 08:50 Carbon Dioxide 25 mmol/L (22-30) 09/06/21 08:50 Anion Gap 13 mmol/L 09/06/21 08:50 BUN 19 mg/dL (9-20) 09/06/21 08:50 Creatinine 1.2 mg/dL (0.8-1.3) 09/06/21 08:50 Estimated GFR > 60 ml/min 09/06/21 08:50 BUN/Creatinine Ratio 16 % 09/06/21 08:50 Glucose 118 mg/dL (75-100) H 09/06/21 08:50 POC Glucose 218 mg/dL (70-105) H 09/03/21 18:34 Calcium 9.7 mg/dL (8.4-10.2) 09/06/21 08:50 Phosphorus 3.00 mg/dL (2.5-4.5) 09/06/21 08:50 Magnesium 2.20 mg/dL (1.7-2.3) 09/06/21 08:50 Total Bilirubin 0.30 mg/dL (0.1-1.2) 08/31/21 12:42 AST 14 units/L (5-40) 08/31/21 12:42 ALT 12 units/L (7-56) 08/31/21 12:42 Alkaline Phosphatase 96 units/L (35-129) 08/31/21 12:42 Troponin T < 0.010 ng/mL (0.00-0.029) 08/31/21 12:42 Total Protein 7.4 g/dL (6.3-8.2) 08/31/21 12:42 Albumin 4.7 g/dL (3.9-5) 08/31/21 12:42 Albumin/Globulin Ratio 1.7 % 08/31/21 12:42 Triglycerides 63 mg/dL (2-149) 09/01/21 06:07 Cholesterol 240 mg/dL (50-199) H 09/01/21 06:07 LDL Cholesterol Direct 168 mg/dL (50-130) H 09/01/21 06:07 HDL Cholesterol 63 mg/dL (40-59) H 09/01/21 06:07 Cholesterol/HDL Ratio 3.80 % 09/01/21 06:07 Urine Color Straw (Yellow) 09/01/21 17:00 Urine Turbidity Clear (Clear) 09/01/21 17:00 Urine pH 6.0 (5.0-7.0) 09/01/21 17:00 Ur Specific [place] 1.044 (1.003-1.030) H 09/01/21 17:00 Urine Protein <15 mg/dl mg/dL (Negative) 09/01/21 17:00 Urine Glucose (UA) Neg mg/dL (Negative) 09/01/21 17:00 Urine Ketones Neg mg/dL (Negative) 09/01/21 17:00 Urine Blood Neg (Negative) 09/01/21 17:00 Urine Nitrite Neg (Negative) 09/01/21 17:00 Urine Bilirubin Neg (Negative) 09/01/21 17:00 Urine Urobilinogen < 2.0 mg/dL (<2.0) 09/01/21 17:00 Ur Leukocyte Esterase Neg (Negative) 09/01/21 17:00 Urine WBC (Auto) < 1.0 /HPF (0.0-6.0) 09/01/21 17:00 Urine RBC (Auto) < 1.0 /HPF (0.0-6.0) 09/01/21 17:00 Urine Mucus Few /HPF 09/01/21 17:00 Brian/IV: Voiding Method Diaper Active Medications - Current Medications Current Medications: Generic Name Dose Route Start Last Admin Trade Name Freq PRN Reason Stop Dose Admin Acetaminophen 650 mg 08/31/21 16:01 09/03/21 06:54 Acetaminophen 325 Mg Tab PO 650 mg Q4H PRN Administration Pain, Mild (1-3) Albuterol 2.5 mg 08/31/21 16:01 Albuterol 2.5 Mg/3 Ml Nebu IH Q3HRT PRN Shortness Of Breath Apixaban 5 mg 09/08/21 10:00 Apixaban 5 Mg Tab PO Q12HR [facility] Protocol Atorvastatin Calcium 80 mg 09/01/21 22:00 09/07/21 21:10 Atorvastatin 40 Mg Tab PO 80 mg QHS [facility] Administration Bisacodyl 10 mg 08/31/21 16:01 Bisacodyl 10 Mg Rect Supp [place] QDAY PRN Constipation Clopidogrel Bisulfate 75 mg 09/08/21 10:00 Clopidogrel 75 Mg Tab PO QDAY [facility] Hydralazine HCl 10 mg 09/01/21 13:07 09/03/21 06:52 Hydralazine 20 Mg/1 Ml Inj IV 10 mg Q4HR PRN Administration Blood Pressure Magnesium Hydroxide 30 ml 08/31/21 16:01 Magnesium Hydroxide (Mom) Oral Liqd Udc PO Q4H PRN Constipation Metoclopramide HCl 10 mg 08/31/21 16:01 Metoclopramide 10 Mg Tab PO Q6H PRN Nausea And Vomiting Nifedipine 30 mg 09/01/21 22:00 09/07/21 21:11 Nifedipine Xl 30 Mg Tab PO 30 mg Q12HR [id number] Administration Ondansetron HCl 4 mg 08/31/21 16:01 Ondansetron 4 Mg/2 Ml Inj IV Q8H PRN Nausea And Vomiting Promethazine HCl 25 mg 08/31/21 16:01 Promethazine 25 Mg Rect Supp [place] Q6H PRN Nausea And Vomiting Sodium Chloride 10 ml 08/31/21 16:01 09/06/21 10:19 Sodium Chloride 0.9% 10 Ml Flush Syringe IV 10 ml PRN PRN Administration LINE FLUSH Nutrition/Malnutrition Assess - Dietary Evaluation Nutrition/Malnutrition Findings: Nutrition Notes Start: 09/01/21 12:33 Freq: Status: Active Protocol: Document 09/01/21 12:33 JESSICA (Rec: 09/01/21 12:53 JESSICA [id number]) Nutrition Notes 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 Labs/Tests 09/01: Crea 1.6, Glu 101. Pertinent Medications 09/01: Nutritionally unremarkable. 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 Weight Status Overweight Subjective/Other Information RD consult for skin risk assessment. No reports available on Pt's PO intake of meals at the time , but MD mentioned that Pt was eating his luch without any problem, according to Progress notes. Bedside swallow evaluation passed, according to [facility] swift. RN note on 09/01/21 10:15: pt. has no problem swallowing tolerated food well. Pt is on Room Air, O2 saturation @ 100%, according to Physical Assessment History notes. Pt has missing teeth, according to Physical Assessment History notes. Pt shows no signs of concern for skin risk at the time, according to Physical Assessment History notes. Percent of energy/protein needs met: Prescribed Regular Diet provides for energy/protein needs (2,289 Kcal/89 g) during LOS. Burn Absent Trauma Absent GI Symptoms Nausea,Vomiting Food Allergy No Skin Integrity/Comment Assessment WNL. Minimum of two criteria No #1 Nutrition Diagnosis No nutrition diagnosis at this time Is patient on ventilator? No Is Patient Ambulatory and/or Out of Bed Yes REE-(Tyler-St. Jeor-ambulatory/OOB) [ 1941.719 [id number]] Kcal/Kg value to use for calculation 23 Approximate Energy Requirements Using 1737 kcal/Kg Calculation Used for Recommendations Kcal/kg Additional Notes Protein: 0.8-1.2 g/Kg ABW; 61- 91 g/day. Fluids: 1 ml/Kcal, or as per MD. Nutrition Intervention Change Diet Order: Continue Regular Diet. Revisit per MD consult or patient Sign Off request: Additional Comments Continue monitoring food tolerance, %PO intake of meals , and BM.
[2021-09-08] MEDS: APIXABAN 5 MG TAB PO SCH ×2 (09:59→21:48)
[2021-09-08] MEDS: CLOPIDOGREL 75 MG TAB PO SCH (09:59)
[2021-09-08] MEDS: NIFEdipine XL 30 MG TAB PO SCH ×2 (09:59→21:55)
[2021-09-08 17:06] LABS: Hematocrit 49.2 % (35.5-45.6); Hemoglobin 16.3 gm/dl (11.8-15.2); Mean Corpuscular HGB Conc 33 % (32-34); Mean Corpuscular Volume 82 fl (84-94); Platelet Count 262 K/mm3 (140-440); Red Blood Count 5.98 M/mm3 (3.65-5.03); Red Cell Distribution Width 15.1 % (13.2-15.2)
[2021-09-08 18:17] LABS: INR 0.92 (0.87-1.13)
[2021-09-08 18:18] LABS: Partial Thromboplastin Time 34.1 Sec. (24.2-36.6)
[2021-09-08] MEDS: ACETAMINOPHEN 325 MG TAB PO PRN (21:57)
--- NOTE | 2021-09-09 08:41 | Progress Note ---
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 Patient states that he ignored the symptoms and thought that it would get better. Patient reported difficulty grasping objects in his left hand and maintaining objects in his left hand. Patient also reported new onset weakness in his left leg over the past 3 days prior to admission. The patient was found to have a focal neurologic deficit at the time of his arrival. A code stroke was called and the patient was initiated on CVA protocol and admitted to medical floor due to increased risk of worsening symptoms. Teleneurology consulted. Patient deemed outside the window for tPA. Patient had extensive neuro work-up, findings consistent with acute CVA with left-sided hemiplegia, patient is placed on aspirin and statin, PT OT has evaluated and recommended acute rehab placement. Patient also had right internal carotid artery stenosis, vascular evaluated the patient, recommended long-term anticoagulation with Eliquis as well as antiplatelets Plavix. Assessment and plan; Acute CVA; embolic CVA acute/subacute ischemia right parietal and MCA territory not a candidate for tPA Aspirin and statin, vascular recommended Plavix, and also started Eliquis[rt internal carotid artery stenosis] extensive work-up reviewed. 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 Discharge planning per case management Left hemiplegia ; Physical therapy, Occupational Therapy, rehabilitation right internal carotid artery stenosis; Evaluated by vascular/IR No indication for surgical intervention Vascular recommended Eliquis 5 mg every 12 hours Started Eliquis 5 mg every 12 hours[confirmed with pharmacy] Mild hyponatremia; Closely monitor electrolytes, consider normal saline hydration Accelerated hypertension; Continue multiple antihypertensives Permissive hypertension per protocol Acute kidney injury on probable CKD; Due to vasomotor nephropathy Resolved, creatinine normal levels Medical noncompliance; Counseling strongly advised to comply with medications diet and follow-up visits Tobacco abuse; Smoking cessation counseling Strongly advised to quit tobacco use Nicotine patch as needed EtOH abuse; Advised to quit alcohol intake, monitor for alcohol withdrawal symptoms CIWA protocol if needed, recommend alcohol rehabilitation upon discharge DVT prophylaxis; subcu Lovenox Social issues; patient has no resources no insurance Very difficult to consider acute or subacute rehab. Discussed with case management the discharge planning Closely monitor the patient and adjust management as needed DC planning per case management 09/01/2021. CT of the brain is unremarkable. Await CTA of the brain and neck and MRI. Neurology following. Follow-up echocardiogram. Patient started on Plavix and aspirin. Lipitor increased to 80 mg daily. Await PT/ST evaluation. Patient received permissive hypertension overnight. We will start Procardia 30 mg p.o. twice daily. 09/02/2021. CTA of head/neck neck reveals occluded right ICA which may be secondary to dissection. Patient also has decreased flow in the right MCA territory. Significant narrowing seen at the origin of both vertebral arteries. Also, some irregularity of the esophagus with recommendations for esophagram. Follow-up MRI. We will consult vascular surgery for further evaluation. Neurology following 09/03/2021. The patient had signs and system consistent with a subacute CVA. C TA of the neck reveals an occlusion of the right internal carotid artery. Vascular surgery was consulted and reviewed the films at the appearance of possible thrombus within the artery. Review of the carotid duplex does not reveal a significant amount of plaque within the is also not demonstrated on the CTA of the neck, again suggesting that this may be thrombotic or embolic in nature. Vascular surgery reports that given the possibility of thrombus, we would obtain echocardiogram to rule out a cardiac source. The patient may likely need JOSE. Consider consulting cardiology for recommendations for JOSE. Given the likely thrombotic nature of the occlusion, vascular surgery would recommend adding oral anticoagulation to his statin and antiplatelet regimen. We will start Plavix 75 mg p.o. daily and Eliquis 5 mg p.o. daily after MRI of head to rule out large CVA. Vascular surgery reports no surgical intervention required. 09/04; patient restrained for safety, closely monitor for alcohol withdrawal symptoms Consultants and recommendations noted and appreciated 09/06; patient is off restraints, PT OT recommended acute rehab DC planning per case management Patient does not have insurance, no payer source, social issues 09/07/21; vascular recommended Eliquis 5 mg twice a day for complete occlusion of carotid artery In addition to aspirin or Plavix. DC planning per case management 09/08/21; started Eliquis 5 mg twice a day recommended by vascular for right carotid oximetry occlusion I DC'd subcu Lovenox DVT prophylaxis, patient is on antiplatelets Plavix for his acute CVA We will closely monitor for any evidence of bleeding 09/09/2021; acute rehab placement, social issues Possible DC home with home health in 1 or 2 days CM assisting with discharge planning Pending placement, social issues, no resources History Interval history: I have seen and examined the patient at the bedside Patient's chart and medications reviewed Patient feels slightly better still has left-sided hemiplegia No new complaints Vital signs noted Hospitalist Physical - Constitutional Vitals: Temp Pulse Resp BP Pulse Ox 98.2 F 78 18 82/62 97 09/09/21 04:44 09/09/21 04:44 09/09/21 04:44 09/09/21 04:44 09/09/21 07:11 General appearance: Present: no acute distress, well-nourished, other (Left- sided hemiplegia) - EENT Eyes: Present: PERRL, EOM intact - Neck Neck: Present: supple, normal ROM - Respiratory Respiratory effort: normal Respiratory: bilateral: diminished, negative: rales, rhonchi, wheezing - Cardiovascular Rhythm: regular Heart Sounds: Present: S1 & S2 - Extremities Extremities: no ischemia, No edema - Abdominal General gastrointestinal: soft, non-tender, non-distended, normal bowel sounds - Integumentary Integumentary: Present: clear, warm - Psychiatric Psychiatric: appropriate mood/affect, cooperative - Neurologic Neurologic: moves all extremities (Acute CVA left-sided hemiplegia) HEART Score - HEART Score Troponin: Troponin T < 0.010 ng/mL (0.00-0.029) 08/31/21 12:42 Results - Labs CBC & Chem 7: 09/08/21 16:25 09/08/21 16:25 Labs: Laboratory Last Values WBC 6.0 K/mm3 (4.5-11.0) 09/08/21 16:25 RBC 5.98 M/mm3 (3.65-5.03) H 09/08/21 16:25 Hgb 16.3 gm/dl (11.8-15.2) H 09/08/21 16:25 Hct 49.2 % (35.5-45.6) H 09/08/21 16:25 MCV 82 fl (84-94) L 09/08/21 16:25 MCH 27 pg (28-32) L 09/08/21 16:25 MCHC 33 % (32-34) 09/08/21 16:25 RDW 15.1 % (13.2-15.2) 09/08/21 16:25 Plt Count 262 K/mm3 (140-440) 09/08/21 16:25 Lymph % (Auto) 21.4 % (13.4-35.0) 09/03/21 09:50 Burke % (Auto) 11.7 % (0.0-7.3) H 09/03/21 09:50 Eos % (Auto) 1.3 % (0.0-4.3) 09/03/21 09:50 Baso % (Auto) 0.6 % (0.0-1.8) 09/03/21 09:50 Lymph # (Auto) 1.4 K/mm3 (1.2-5.4) 09/03/21 09:50 Burke # (Auto) 0.8 K/mm3 (0.0-0.8) 09/03/21 09:50 Eos # (Auto) 0.1 K/mm3 (0.0-0.4) 09/03/21 09:50 Baso # (Auto) 0.0 K/mm3 (0.0-0.1) 09/03/21 09:50 Seg Neutrophils % 65.0 % (40.0-70.0) 09/03/21 09:50 Seg Neutrophils # 4.2 K/mm3 (1.8-7.7) 09/03/21 09:50 ESR 1 mm/Hr (0-20) 09/02/21 12:54 PT 13.4 Sec. (12.2-14.9) 09/08/21 16:25 INR 0.92 (0.87-1.13) 09/08/21 16:25 APTT 34.1 Sec. (24.2-36.6) 09/08/21 16:25 Sodium 135 mmol/L (137-145) L 09/06/21 08:50 Potassium 3.9 mmol/L (3.6-5.0) 09/06/21 08:50 Chloride 100.9 mmol/L (98-107) 09/06/21 08:50 Carbon Dioxide 25 mmol/L (22-30) 09/06/21 08:50 Anion Gap 13 mmol/L 09/06/21 08:50 BUN 19 mg/dL (9-20) 09/06/21 08:50 Creatinine 1.1 mg/dL (0.8-1.3) 09/08/21 16:25 Estimated GFR > 60 ml/min 09/08/21 16:25 BUN/Creatinine Ratio 16 % 09/06/21 08:50 Glucose 118 mg/dL (75-100) H 09/06/21 08:50 POC Glucose 218 mg/dL (70-105) H 09/03/21 18:34 Calcium 9.7 mg/dL (8.4-10.2) 09/06/21 08:50 Phosphorus 3.00 mg/dL (2.5-4.5) 09/06/21 08:50 Magnesium 2.20 mg/dL (1.7-2.3) 09/06/21 08:50 Total Bilirubin 0.30 mg/dL (0.1-1.2) 08/31/21 12:42 AST 14 units/L (5-40) 08/31/21 12:42 ALT 12 units/L (7-56) 08/31/21 12:42 Alkaline Phosphatase 96 units/L (35-129) 08/31/21 12:42 Troponin T < 0.010 ng/mL (0.00-0.029) 08/31/21 12:42 Total Protein 7.4 g/dL (6.3-8.2) 08/31/21 12:42 Albumin 4.7 g/dL (3.9-5) 08/31/21 12:42 Albumin/Globulin Ratio 1.7 % 08/31/21 12:42 Triglycerides 63 mg/dL (2-149) 09/01/21 06:07 Cholesterol 240 mg/dL (50-199) H 09/01/21 06:07 LDL Cholesterol Direct 168 mg/dL (50-130) H 09/01/21 06:07 HDL Cholesterol 63 mg/dL (40-59) H 09/01/21 06:07 Cholesterol/HDL Ratio 3.80 % 09/01/21 06:07 Urine Color Straw (Yellow) 09/01/21 17:00 Urine Turbidity Clear (Clear) 09/01/21 17:00 Urine pH 6.0 (5.0-7.0) 09/01/21 17:00 Ur Specific Hope 1.044 (1.003-1.030) H 09/01/21 17:00 Urine Protein <15 mg/dl mg/dL (Negative) 09/01/21 17:00 Urine Glucose (UA) Neg mg/dL (Negative) 09/01/21 17:00 Urine Ketones Neg mg/dL (Negative) 09/01/21 17:00 Urine Blood Neg (Negative) 09/01/21 17:00 Urine Nitrite Neg (Negative) 09/01/21 17:00 Urine Bilirubin Neg (Negative) 09/01/21 17:00 Urine Urobilinogen < 2.0 mg/dL (<2.0) 09/01/21 17:00 Ur Leukocyte Esterase Neg (Negative) 09/01/21 17:00 Urine WBC (Auto) < 1.0 /HPF (0.0-6.0) 09/01/21 17:00 Urine RBC (Auto) < 1.0 /HPF (0.0-6.0) 09/01/21 17:00 Urine Mucus Few /HPF 09/01/21 17:00 Brian/IV: Voiding Method Incontinent Active Medications - Current Medications Current Medications: Generic Name Dose Route Start Last Admin Trade Name Freq PRN Reason Stop Dose Admin Acetaminophen 650 mg 08/31/21 16:01 09/08/21 21:57 Acetaminophen 325 Mg Tab PO 650 mg Q4H PRN Administration Pain, Mild (1-3) Albuterol 2.5 mg 08/31/21 16:01 Albuterol 2.5 Mg/3 Ml Nebu IH Q3HRT PRN Shortness Of Breath Apixaban 5 mg 09/08/21 10:00 09/08/21 21:48 Apixaban 5 Mg Tab PO 5 mg Q12HR WOJCIECH Administration Protocol Atorvastatin Calcium 80 mg 09/01/21 22:00 09/08/21 21:47 Atorvastatin 40 Mg Tab PO 80 mg QHS WOJCIECH Administration Bisacodyl 10 mg 08/31/21 16:01 Bisacodyl 10 Mg Rect Supp AR QDAY PRN Constipation Clopidogrel Bisulfate 75 mg 09/08/21 10:00 09/08/21 09:59 Clopidogrel 75 Mg Tab PO 75 mg QDAY WOJCIECH Administration Hydralazine HCl 10 mg 05/14/22 13:07 09/03/21 06:52 Hydralazine 20 Mg/1 Ml Inj IV 10 mg Q4HR PRN Administration Blood Pressure Magnesium Hydroxide 30 ml 08/31/21 16:01 Magnesium Hydroxide (Mom) Oral Liqd Udc PO Q4H PRN Constipation Metoclopramide HCl 10 mg 08/31/21 16:01 Metoclopramide 10 Mg Tab PO Q6H PRN Nausea And Vomiting Nifedipine 30 mg 09/01/21 22:00 09/08/21 21:55 Nifedipine Xl 30 Mg Tab PO 30 mg Q12HR WOJCIECH Administration Ondansetron HCl 4 mg 08/31/21 16:01 Ondansetron 4 Mg/2 Ml Inj IV Q8H PRN Nausea And Vomiting Promethazine HCl 25 mg 08/31/21 16:01 Promethazine 25 Mg Rect Supp AR Q6H PRN Nausea And Vomiting Sodium Chloride 10 ml 08/31/21 16:01 09/06/21 10:19 Sodium Chloride 0.9% 10 Ml Flush Syringe IV 10 ml PRN PRN Administration LINE FLUSH Nutrition/Malnutrition Assess - Dietary Evaluation Nutrition/Malnutrition Findings: Nutrition Notes Start: 09/01/21 12:33 Freq: Status: Active Protocol: Document 09/01/21 12:33 JESSICA (Rec: 09/01/21 12:53 JESSICA [id number]) Nutrition Notes 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 Labs/Tests 09/01: Crea 1.6, Glu 101. Pertinent Medications 09/01: Nutritionally unremarkable. 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 Weight Status Overweight Subjective/Other Information RD consult for skin risk assessment. No reports available on Pt's PO intake of meals at the time , but mentioned that Pt was eating his luch without any problem, according to Progress notes. Bedside swallow evaluation passed, according to [facility] swift. RN note on 09/01/21 10:15: pt. has no problem swallowing tolerated food well. Pt is on Room Air, O2 saturation @ 100%, according to Physical Assessment History notes. Pt has missing teeth, according to Physical Assessment History notes. Pt shows no signs of concern for skin risk at the time, according to Physical Assessment History notes. Percent of energy/protein needs met: Prescribed Regular Diet provides for energy/protein needs (2,289 Kcal/89 g) during LOS. Burn Absent Trauma Absent GI Symptoms Nausea,Vomiting Food Allergy No Skin Integrity/Comment Assessment WNL. Minimum of two criteria No #1 Nutrition Diagnosis No nutrition diagnosis at this time Is patient on ventilator? No Is Patient Ambulatory and/or Out of Bed Yes REE-([place]-St. Jeor-ambulatory/OOB) [ 1941.719 [id number]] Kcal/Kg value to use for calculation 23 Approximate Energy Requirements Using 1737 kcal/Kg Calculation Used for Recommendations Kcal/kg Additional Notes Protein: 0.8-1.2 g/Kg ABW; 61- 91 g/day. Fluids: 1 ml/Kcal, or as per MD. Nutrition Intervention Change Diet Order: Continue Regular Diet. Revisit per MD consult or patient Sign Off request: Additional Comments Continue monitoring food tolerance, %PO intake of meals , and BM.
[2021-09-09] MEDS: CLOPIDOGREL 75 MG TAB PO SCH (09:15)
[2021-09-09] MEDS: NIFEdipine XL 30 MG TAB PO SCH ×2 (09:15→21:49)
[2021-09-09] MEDS: APIXABAN 5 MG TAB PO SCH ×2 (09:15→21:49)
[2021-09-09 13:40] LABS: ANA Screen, IFA Negative (Negative)
[2021-09-09] MEDS: ACETAMINOPHEN 325 MG TAB PO PRN (21:51)
[2021-09-10 07:48] LABS: Hematocrit 49.9 % (35.5-45.6); Mean Corpuscular HGB Conc 32 % (32-34); Mean Corpuscular Volume 82 fl (84-94); Platelet Count 259 K/mm3 (140-440); Red Blood Count 6.06 M/mm3 (3.65-5.03); Red Cell Distribution Width 14.3 % (13.2-15.2)
--- NOTE | 2021-09-10 09:49 | Progress Note ---
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 Patient states that he ignored the symptoms and thought that it would get better. Patient reported difficulty grasping objects in his left hand and maintaining objects in his left hand. Patient also reported new onset weakness in his left leg over the past 3 days prior to admission. The patient was found to have a focal neurologic deficit at the time of his arrival. A code stroke was called and the patient was initiated on CVA protocol and admitted to medical floor due to increased risk of worsening symptoms. Teleneurology consulted. Patient deemed outside the window for tPA. Patient had extensive neuro work-up, findings consistent with acute CVA with left-sided hemiplegia, patient is placed on aspirin and statin, PT OT has evaluated and recommended acute rehab placement. Patient also had right internal carotid artery stenosis, vascular evaluated the patient, recommended long-term anticoagulation with Eliquis as well as antiplatelets Plavix. Assessment and plan; Acute CVA; embolic CVA acute/subacute ischemia right parietal and MCA territory not a candidate for tPA Aspirin and statin, vascular recommended Plavix, and also started Eliquis[rt internal carotid artery stenosis] extensive work-up reviewed. 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 Discharge planning per case management Left hemiplegia ; Physical therapy, Occupational Therapy, rehabilitation right internal carotid artery stenosis; Evaluated by vascular/IR No indication for surgical intervention Vascular recommended Eliquis 5 mg every 12 hours Started Eliquis 5 mg every 12 hours[confirmed with pharmacy] Mild hyponatremia; Closely monitor electrolytes, consider normal saline hydration Accelerated hypertension; Continue multiple antihypertensives Permissive hypertension per protocol Acute kidney injury on probable CKD; Due to vasomotor nephropathy Resolved, creatinine normal levels Medical noncompliance; Counseling strongly advised to comply with medications diet and follow-up visits Tobacco abuse; Smoking cessation counseling Strongly advised to quit tobacco use Nicotine patch as needed EtOH abuse; Advised to quit alcohol intake, monitor for alcohol withdrawal symptoms CIWA protocol if needed, recommend alcohol rehabilitation upon discharge DVT prophylaxis; subcu Lovenox Social issues; patient has no resources no insurance Very difficult to consider acute or subacute rehab. Discussed with case management the discharge planning Closely monitor the patient and adjust management as needed DC planning per case management 09/01/2021. CT of the brain is unremarkable. Await CTA of the brain and neck and MRI. Neurology following. Follow-up echocardiogram. Patient started on Plavix and aspirin. Lipitor increased to 80 mg daily. Await PT/ST evaluation. Patient received permissive hypertension overnight. We will start Procardia 30 mg p.o. twice daily. 09/02/2021. CTA of head/neck neck reveals occluded right ICA which may be secondary to dissection. Patient also has decreased flow in the right MCA territory. Significant narrowing seen at the origin of both vertebral arteries. Also, some irregularity of the esophagus with recommendations for esophagram. Follow-up MRI. We will consult vascular surgery for further evaluation. Neurology following 09/03/2021. The patient had signs and system consistent with a subacute CVA. C TA of the neck reveals an occlusion of the right internal carotid artery. Vascular surgery was consulted and reviewed the films at the appearance of possible thrombus within the artery. Review of the carotid duplex does not reveal a significant amount of plaque within the is also not demonstrated on the CTA of the neck, again suggesting that this may be thrombotic or embolic in nature. Vascular surgery reports that given the possibility of thrombus, we would obtain echocardiogram to rule out a cardiac source. The patient may likely need JOSE. Consider consulting cardiology for recommendations for JOSE. Given the likely thrombotic nature of the occlusion, vascular surgery would recommend adding oral anticoagulation to his statin and antiplatelet regimen. We will start Plavix 75 mg p.o. daily and Eliquis 5 mg p.o. daily after MRI of head to rule out large CVA. Vascular surgery reports no surgical intervention required. 09/04; patient restrained for safety, closely monitor for alcohol withdrawal symptoms Consultants and recommendations noted and appreciated 09/06; patient is off restraints, PT OT recommended acute rehab DC planning per case management Patient does not have insurance, no payer source, social issues 09/07/21; vascular recommended Eliquis 5 mg twice a day for complete occlusion of carotid artery In addition to aspirin or Plavix. DC planning per case management 09/08/21; started Eliquis 5 mg twice a day recommended by vascular for right carotid oximetry occlusion I DC'd subcu Lovenox DVT prophylaxis, patient is on antiplatelets Plavix for his acute CVA We will closely monitor for any evidence of bleeding 09/09/2021; acute rehab placement, social issues Possible DC home with home health in 1 or 2 days CM assisting with discharge planning Pending placement, social issues, no resources 09/10/21; patient is being discharged home with home health Unable to place him in rehab /SNF as patient does not have resources History Interval history: I have seen and examined the patient at the bedside Patient's chart and medications reviewed Patient has no new complaints Vital signs noted Hospitalist Physical - Constitutional Vitals: Temp Pulse Resp BP Pulse Ox 98.2 F 79 18 105/85 96 09/09/21 22:17 09/09/21 22:17 09/09/21 22:17 09/09/21 22:17 09/10/21 08:08 General appearance: Present: no acute distress, well-nourished, other (Left- sided hemiplegia) - EENT Eyes: Present: PERRL, EOM intact - Neck Neck: Present: supple, normal ROM - Respiratory Respiratory effort: normal Respiratory: bilateral: diminished, negative: rales, rhonchi, wheezing - Cardiovascular Rhythm: regular Heart Sounds: Present: S1 & S2 - Extremities Extremities: no ischemia, No edema - Abdominal General gastrointestinal: soft, non-tender, non-distended, normal bowel sounds - Integumentary Integumentary: Present: clear, warm - Psychiatric Psychiatric: appropriate mood/affect, cooperative - Neurologic Neurologic: other (Left hemiplegia) HEART Score - HEART Score Troponin: Troponin T < 0.010 ng/mL (0.00-0.029) 08/31/21 12:42 Results - Labs CBC & Chem 7: 09/10/21 06:14 09/08/21 16:25 Labs: Laboratory Last Values WBC 4.9 K/mm3 (4.5-11.0) 09/10/21 06:14 RBC 6.06 M/mm3 (3.65-5.03) H 09/10/21 06:14 Hgb 16.0 gm/dl (11.8-15.2) H 09/10/21 06:14 Hct 49.9 % (35.5-45.6) H 09/10/21 06:14 MCV 82 fl (84-94) L 09/10/21 06:14 MCH 26 pg (28-32) L 09/10/21 06:14 MCHC 32 % (32-34) 09/10/21 06:14 RDW 14.3 % (13.2-15.2) 09/10/21 06:14 Plt Count 259 K/mm3 (140-440) 09/10/21 06:14 Lymph % (Auto) 21.4 % (13.4-35.0) 09/03/21 09:50 [place] % (Auto) 11.7 % (0.0-7.3) H 09/03/21 09:50 Eos % (Auto) 1.3 % (0.0-4.3) 09/03/21 09:50 Baso % (Auto) 0.6 % (0.0-1.8) 09/03/21 09:50 Lymph # (Auto) 1.4 K/mm3 (1.2-5.4) 09/03/21 09:50 [place] # (Auto) 0.8 K/mm3 (0.0-0.8) 09/03/21 09:50 Eos # (Auto) 0.1 K/mm3 (0.0-0.4) 09/03/21 09:50 Baso # (Auto) 0.0 K/mm3 (0.0-0.1) 09/03/21 09:50 Seg Neutrophils % 65.0 % (40.0-70.0) 09/03/21 09:50 Seg Neutrophils # 4.2 K/mm3 (1.8-7.7) 09/03/21 09:50 ESR 1 mm/Hr (0-20) 09/02/21 12:54 PT 13.4 Sec. (12.2-14.9) 09/08/21 16:25 INR 0.92 (0.87-1.13) 09/08/21 16:25 APTT 34.1 Sec. (24.2-36.6) 09/08/21 16:25 Sodium 135 mmol/L (137-145) L 09/06/21 08:50 Potassium 3.9 mmol/L (3.6-5.0) 09/06/21 08:50 Chloride 100.9 mmol/L (98-107) 09/06/21 08:50 Carbon Dioxide 25 mmol/L (22-30) 09/06/21 08:50 Anion Gap 13 mmol/L 09/06/21 08:50 BUN 19 mg/dL (9-20) 09/06/21 08:50 Creatinine 1.1 mg/dL (0.8-1.3) 09/08/21 16:25 Estimated GFR > 60 ml/min 09/08/21 16:25 BUN/Creatinine Ratio 16 % 09/06/21 08:50 Glucose 118 mg/dL (75-100) H 09/06/21 08:50 POC Glucose 218 mg/dL (70-105) H 09/03/21 18:34 Calcium 9.7 mg/dL (8.4-10.2) 09/06/21 08:50 Phosphorus 3.00 mg/dL (2.5-4.5) 09/06/21 08:50 Magnesium 2.20 mg/dL (1.7-2.3) 09/06/21 08:50 Total Bilirubin 0.30 mg/dL (0.1-1.2) 08/31/21 12:42 AST 14 units/L (5-40) 08/31/21 12:42 ALT 12 units/L (7-56) 08/31/21 12:42 Alkaline Phosphatase 96 units/L (35-129) 08/31/21 12:42 Troponin T < 0.010 ng/mL (0.00-0.029) 08/31/21 12:42 Total Protein 7.4 g/dL (6.3-8.2) 08/31/21 12:42 Albumin 4.7 g/dL (3.9-5) 08/31/21 12:42 Albumin/Globulin Ratio 1.7 % 08/31/21 12:42 Triglycerides 63 mg/dL (2-149) 09/01/21 06:07 Cholesterol 240 mg/dL (50-199) H 09/01/21 06:07 LDL Cholesterol Direct 168 mg/dL (50-130) H 09/01/21 06:07 HDL Cholesterol 63 mg/dL (40-59) H 09/01/21 06:07 Cholesterol/HDL Ratio 3.80 % 09/01/21 06:07 Urine Color Straw (Yellow) 09/01/21 17:00 Urine Turbidity Clear (Clear) 09/01/21 17:00 Urine pH 6.0 (5.0-7.0) 09/01/21 17:00 Ur Specific [place] 1.044 (1.003-1.030) H 09/01/21 17:00 Urine Protein <15 mg/dl mg/dL (Negative) 09/01/21 17:00 Urine Glucose (UA) Neg mg/dL (Negative) 09/01/21 17:00 Urine Ketones Neg mg/dL (Negative) 09/01/21 17:00 Urine Blood Neg (Negative) 09/01/21 17:00 Urine Nitrite Neg (Negative) 09/01/21 17:00 Urine Bilirubin Neg (Negative) 09/01/21 17:00 Urine Urobilinogen < 2.0 mg/dL (<2.0) 09/01/21 17:00 Ur Leukocyte Esterase Neg (Negative) 09/01/21 17:00 Urine WBC (Auto) < 1.0 /HPF (0.0-6.0) 09/01/21 17:00 Urine RBC (Auto) < 1.0 /HPF (0.0-6.0) 09/01/21 17:00 Urine Mucus Few /HPF 09/01/21 17:00 BEAR Screen Negative (Negative) 09/02/21 12:54 Brian/IV: Voiding Method Condom Catheter Active Medications - Current Medications Current Medications: Generic Name Dose Route Start Last Admin Trade Name Freq PRN Reason Stop Dose Admin Acetaminophen 650 mg 08/31/21 16:01 09/09/21 21:51 Acetaminophen 325 Mg Tab PO 650 mg Q4H PRN Administration Pain, Mild (1-3) Albuterol 2.5 mg 08/31/21 16:01 Albuterol 2.5 Mg/3 Ml Nebu IH Q3HRT PRN Shortness Of Breath Apixaban 5 mg 09/08/21 10:00 09/09/21 21:49 Apixaban 5 Mg Tab PO 5 mg Q12HR WOJCIECH Administration Protocol Atorvastatin Calcium 80 mg 09/01/21 22:00 09/09/21 21:49 Atorvastatin 40 Mg Tab PO 80 mg QHS WOJCIECH Administration Bisacodyl 10 mg 08/31/21 16:01 Bisacodyl 10 Mg Rect Supp DC QDAY PRN Constipation Clopidogrel Bisulfate 75 mg 09/08/21 10:00 09/09/21 09:15 Clopidogrel 75 Mg Tab PO 75 mg QDAY WOJCIECH Administration Hydralazine HCl 10 mg 09/01/21 13:07 09/03/21 06:52 Hydralazine 20 Mg/1 Ml Inj IV 10 mg Q4HR PRN Administration Blood Pressure Magnesium Hydroxide 30 ml 08/31/21 16:01 Magnesium Hydroxide (Mom) Oral Liqd Udc PO Q4H PRN Constipation Metoclopramide HCl 10 mg 08/31/21 16:01 Metoclopramide 10 Mg Tab PO Q6H PRN Nausea And Vomiting Nifedipine 30 mg 09/01/21 22:00 09/09/21 21:49 Nifedipine Xl 30 Mg Tab PO 30 mg Q12HR WOJCIECH Administration Ondansetron HCl 4 mg 08/31/21 16:01 Ondansetron 4 Mg/2 Ml Inj IV Q8H PRN Nausea And Vomiting Promethazine HCl 25 mg 08/31/21 16:01 Promethazine 25 Mg Rect Supp DC Q6H PRN Nausea And Vomiting Sodium Chloride 10 ml 08/31/21 16:01 09/09/21 09:14 Sodium Chloride 0.9% 10 Ml Flush Syringe IV 10 ml PRN PRN Administration LINE FLUSH Nutrition/Malnutrition Assess - Dietary Evaluation Nutrition/Malnutrition Findings: Nutrition Notes Start: 09/01/21 12:33 Freq: Status: Active Protocol: Document 09/01/21 12:33 JESSICA (Rec: 09/01/21 12:53 JESSICA [id number]) Nutrition Notes 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 Labs/Tests 09/01: Crea 1.6, Glu 101. Pertinent Medications 09/01: Nutritionally unremarkable. 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 Weight Status Overweight Subjective/Other Information RD consult for skin risk assessment. No reports available on Pt's PO intake of meals at the time , but MD mentioned that Pt was eating his luch without any problem, according to Progress notes. Bedside swallow evaluation passed, according to [facility] swift. RN note on 09/01/21 10:15: pt. has no problem swallowing tolerated food well. Pt is on Room Air, O2 saturation @ 100%, according to Physical Assessment History notes. Pt has missing teeth, according to Physical Assessment History notes. Pt shows no signs of concern for skin risk at the time, according to Physical Assessment History notes. Percent of energy/protein needs met: Prescribed Regular Diet provides for energy/protein needs (2,289 Kcal/89 g) during LOS. Burn Absent Trauma Absent GI Symptoms Nausea,Vomiting Food Allergy No Skin Integrity/Comment Assessment WNL. Minimum of two criteria No #1 Nutrition Diagnosis No nutrition diagnosis at this time Is patient on ventilator? No Is Patient Ambulatory and/or Out of Bed Yes REE-([place]-St. Jeor-ambulatory/OOB) [ 1941.719 [id number]] Kcal/Kg value to use for calculation 23 Approximate Energy Requirements Using 1737 kcal/Kg Calculation Used for Recommendations Kcal/kg Additional Notes Protein: 0.8-1.2 g/Kg ABW; 61- 91 g/day. Fluids: 1 ml/Kcal, or as per MD. Nutrition Intervention Change Diet Order: Continue Regular Diet. Revisit per MD consult or patient Sign Off request: Additional Comments Continue monitoring food tolerance, %PO intake of meals , and BM.
[2021-09-10] MEDS: ACETAMINOPHEN 325 MG TAB PO PRN (10:20)
[2021-09-10] MEDS: NIFEdipine XL 30 MG TAB PO SCH (10:21)
[2021-09-10] MEDS: CLOPIDOGREL 75 MG TAB PO SCH (10:21)
[2021-09-10] MEDS: APIXABAN 5 MG TAB PO SCH (10:21)
--- NOTE | 2021-09-10 10:56 | Progress Note ---
Assessment and Plan Assessment and Plan 66 YO Male with Nicotine Dependence, HTN presents to ED for evaluation. Patient reports "I feel weak, left side". Patient states that he experienced sudden onset left arm weakness 3 weeks ago. Patient states that he ignored the symptoms and thought that it would get better. Patient reports difficulty grasping objects in his left hand and maintaining objects in his left hand. Patient also reports new onset weakness in his left leg over the past 3 days with persistent and worsening symptoms over the same timeframe. - Patient Problems # Progressive left side weakness over the last 3 weeks -R/O CVA (cerebral vascular accident) -CT brain is unremarkable -CTA brain and neck Complet occluded right ICA, and decraese flow right MCA-- possible thrombus -Creatinine #1.1 -MRI brain isremarkable for multi infarct right >left -NIH today #6 -echo is pending -LDL#168 -On Plavix 300 mg once then plavix 75 mg daily Plus Eliquis 5 mg bid as per VS -Lipitor increased to 80 mg daily -Suggest [facility] on Duscharge and carduiology follow up -pt. is rehabilitation candidate. # Possible frozen left shoulder related to above. 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 -Initial BP 209/90 -control BP<150/90 # Renal insufficiency -improved #Poor compliance with medications -According to pt. he takes no medications at home with poor medical follow up # Nicotine dependence -Smoking cessation counseling, supportive care, behavior change counseling, +15 minutes. # Ping alcoholic drinker -according to pt. last drink was 3 weeks ago -Dt precaution -UDS # DVT prophylaxis -SCD to bilateral lower extremities while in bed PLAN 1- Consider [facility] on discharge 2- Rehabilitation 3- Mant[place] Plavix 75 mg and Eliquis as per vascular surgery Subjective Date of service: 09/10/21 Interval history: left side weakness is unchanged BP is better 150/69 MRI brain is noted multi infatct bilateral predominant right side CTA brain and neck--complet occluded right ICA ? dissection with decrease flow right MCA-- noted by VS possible thrombus -Possible irregular flow esophagus echo is with EF#55-60% negative PFO LDL#168 today he is alert disoriented to date or president name ,he knows his name and birthday. complaint of left shoulder pain Objective - Vital Sign Vital Signs - 12hr 09/10/21 08:08 O2 Sat by Pulse 96 Oximetry - General Apperance Constitutional: uncomfortable - EENT EENT: PERRL, mucous membranes moist - Respiratory Respiratory: lungs clear, rhonchi - Cardiovascular Cardiovascular: regular rate, normal S1, normal S2 Extremities: no peripheral edema bilat - Gastrointestinal Gastrointestinal: normoactive bowel sounds - Integumentary Integumentary: normal - Neurologic Cranial nerve examination: PERRL, EOMI, facial droop Speech examination: intact Detailed motor examination: other (left side 1-2/5 with pain left shoulder and increase tone ? frozen shoulder.) - Laboratory Findings CBC and BMP: 09/10/21 06:14 09/08/21 16:25 Abnormal Lab Findings: Abnormal Labs 08/31/21 08/31/21 09/01/21 12:42 12:42 06:07 RBC 5.62 H Hgb Hct 46.3 H MCV 82 L MCH 27 L RDW [place] % (Auto) Sodium Potassium Creatinine 1.6 H Glucose 101 H POC Glucose Cholesterol 240 H LDL Cholesterol Direct 168 H HDL Cholesterol 63 H Ur Specific [place] 09/01/21 09/02/21 09/02/21 17:00 11:07 11:07 RBC 5.95 H Hgb 16.6 H Hct 48.2 H MCV 81 L MCH RDW 15.4 H [place] % (Auto) 9.6 H Sodium 136 L Potassium 3.5 L Creatinine Glucose POC Glucose Cholesterol LDL Cholesterol Direct HDL Cholesterol Ur Specific [place] 1.044 H 09/03/21 09/03/21 09/03/21 09:50 09:50 18:34 RBC 6.02 H Hgb 16.0 H Hct 50.0 H MCV 83 L MCH 27 L RDW 15.3 H [place] % (Auto) 11.7 H Sodium 136 L Potassium Creatinine Glucose POC Glucose 218 H Cholesterol LDL Cholesterol Direct HDL Cholesterol Ur Specific [place] 09/06/21 09/08/21 09/10/21 08:50 16:25 06:14 RBC 5.98 H 6.06 H Hgb 16.3 H 16.0 H Hct 49.2 H 49.9 H MCV 82 L 82 L MCH 27 L 26 L RDW [place] % (Auto) Sodium 135 L Potassium Creatinine Glucose 118 H POC Glucose Cholesterol LDL Cholesterol Direct HDL Cholesterol Ur Specific [place]
--- NOTE | 2021-09-10 11:33 | XRay Report ---
LEFT SHOULDER 3 VIEWS INDICATION: left shoulder pain and limited motion. COMPARISON: None. IMPRESSION: No acute osseous or soft tissue abnormality. Mild osteoarthritic changes are identifi ed at the glenohumeral joint and AC joint. Signer Name: Cayetano Larios Jr, MD Signed: 09/10/2021 11:29 AM Workstation Name: [id number]
--- NOTE | 2021-09-10 12:18 | Discharge Summary ---
Providers - Providers Date of Admission: 08/31/21 16:01 Date of discharge: 09/10/21 Attending physician: KRISTINE AMADOR 08/31/21 16:01 Occupational Therapy Evaluate and Treat [CONS] Routine Comment: Reason For Exam: Neuro deficits Physical Therapy Evaluation and Treat [CONS] Routine Comment: Reason For Exam: Neuro deficits 09/01/21 09:59 Consult to Physician [CONS] Routine Comment: Consulting Provider: FRANCISCO J ZACARIAS Physician Instructions: Reason For Exam: cva 09/02/21 10:34 Consult to Physician [CONS] Routine Comment: Consulting Provider: EVELIA SHARP Physician Instructions: Reason For Exam: Abnormal CTA, R ICA occlusion, ?dissection 09/04/21 13:24 Speech Therapy Evaluation and Treat [CONS] Routine Reason For Exam: evaluate swallowing Primary care physician: VEST TAILOR Hospitalization Reason for admission: Left-sided weakness/acute stroke Condition: Fair Pertinent studies: CT head without contrast CTA head CTA neck MRI brain Echocardiogram Carotid Doppler Chest x-ray Shoulder x-ray Hospital course: 66 YO Male patient with significant past medical history of nicotine Dependence, HTN was admitted through emergency room with sudden onset of left-sided weakness. Patient was evaluated by telemetry neurologist,, initiated the stroke protocol, not a candidate for tPA, admitted with aspirin and statin Subsequently underwent extensive neuro work-up which is consistent with left- sided hemiplegia. During the work-up patient also is noted to have right internal carotid artery stenosis, evaluated by vascular, recommended anticoagulation with Eliquis after complete neuro work is done and patient is stable, patient had extensive neuro work-up with CT head without contrast, CTA brain, CTA head, MRI brain and echocardiogram. MRI findings consistent with acute/subacute ischemia on the right parietal and MCA territory patient was not a candidate for tPA Patient manifested left-sided hemiplegia, received physical therapy occupational therapy and supportive care PT OT recommended acute rehab placement, however patient does not have resources and has multiple social issues. Case management as well as the physicians have have discussed with family the patient's needs and lack of resources and for placement And the family informed that they have a lot of family support at home and they would be able to take care of the patient. Patient passed a swallow eval and is tolerating regular food Today patient is comfortable vital signs and physical examination are stable . Discharge home with home health, equipment like wheelchair and bedside commode And follow-up visit with primary care physician, private neurologist. Patient is stable at discharge with guarded prognosis due to his left-sided hemiplegia. Patient was also started on Eliquis as recommended by vascular for carotid artery stenosis Risks and consequences of bleeding and the risks of falls explained in detail with the sister and she verbalized understanding Stable at discharge Discharge diagnosis Acute CVA; embolic CVA acute/subacute ischemia right parietal and MCA territory not a candidate for tPA Aspirin and statin, vascular recommended Plavix, and also started Eliquis[rt internal carotid artery stenosis] extensive work-up reviewed. 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 Left hemiplegia ; Physical therapy, Occupational Therapy, rehabilitation right internal carotid artery stenosis; Evaluated by vascular/IR No indication for surgical intervention Vascular recommended Eliquis 5 mg every 12 hours Started Eliquis 5 mg every 12 hours[confirmed with pharmacy] Mild hyponatremia; Closely monitor electrolytes, consider normal saline hydration Accelerated hypertension; Continue multiple antihypertensives Permissive hypertension per protocol Acute kidney injury on probable CKD; Due to vasomotor nephropathy Resolved, creatinine normal levels Medical noncompliance; Counseling strongly advised to comply with medications diet and follow-up visits Tobacco abuse; Smoking cessation counseling Strongly advised to quit tobacco use Nicotine patch as needed EtOH abuse; Advised to quit alcohol intake, monitor for alcohol withdrawal symptoms CIWA protocol if needed, recommend alcohol rehabilitation upon discharge DVT prophylaxis; subcu Lovenox Social issues; patient has no resources no insurance Very difficult to consider acute or subacute rehab. Discussed with case management the discharge planning Patient is stable at discharge Disposition: 06 HOME HEALTH CARE SERVICE Final Discharge Diagnosis (Prints w/discharge instructions): Acute CVA/right parietal and MCA territory. Left hemiplegia. Right internal carotid artery stenosis. Hyponatremia resolved. Accelerated hypertension improved. Acute kidney injury/vasomotor nephropathy/resolved. Dyslipidemia. 80 medical noncompliance. Ongoing tobacco use smoking cessation counseling done. Alcohol abuse advised to quit Time spent for discharge: 35 min Core Measure Documentation - Palliative Care Palliative Care/ Comfort Measures: Not Applicable - Core Measures Any of the following diagnoses?: stroke - Stroke Discharge Requirements Statin for LDL = or >70 mg/dl on DC: Yes Anticoag for atrial fib/atrial flutter: No Reason for no anticoag for AF/F on DC: Not Indicated (Patient has no A. fib or a flutter) Antithrombotic for ischemic stroke: Yes Exam - Constitutional Vitals: Temp Pulse Resp BP Pulse Ox 98.2 F 79 18 105/85 96 09/09/21 22:17 09/09/21 22:17 09/09/21 22:17 09/09/21 22:17 09/10/21 08:08 General appearance: Present: no acute distress, well-nourished - EENT Eyes: Present: PERRL, EOM intact - Neck Neck: Present: supple, normal ROM - Respiratory Respiratory effort: normal Respiratory: bilateral: diminished, negative: rales, rhonchi, wheezing - Cardiovascular Rhythm: regular Heart Sounds: Present: S1 & S2 - Extremities Extremities: no ischemia, No edema, abnormal (Left hemiplegia) - Abdominal General gastrointestinal: Present: soft, non-tender, normal bowel sounds - Integumentary Integumentary: Present: clear, warm - Musculoskeletal Musculoskeletal: strength equal bilaterally, left sided weakness (Hemiplegia) - Psychiatric Psychiatric: appropriate mood/affect, cooperative - Neurologic Neurologic: other (Acute CVA with left hemiplegia) Plan Activity: advance as tolerated, fall precautions Diet: advance as tolerated, other (Pured to mechanical soft diet) Special Instructions: physical therapy (Home physical therapy) Durable Medical Equipment Needed Upon Discharge: Walker-Rolling, Wheelchair, Bedside commode -elevated Additional Instructions: Fall precautions, aspiration precautions if you have worsening symptoms contact MD or go to the nearest emergency room as needed. Advised to see private neurologist in 1 to 2 weeks. Advised to see primary care physician in 1 week Follow up with: PRIMARY MD CHARU [Primary Care Provider] - 7 Days MAKENZIE GRANADOS MD [Staff Physician] - 7 Days Prescriptions: bisacodyL [Dulcolax suppos] 10 mg DE QDAY PRN #20 supp.rect PRN Reason: Constipation Apixaban [Eliquis] 5 mg PO Q12HR #60 tablet AtorvaSTATin [Lipitor] 80 mg PO QHS #30 tablet Clopidogrel [Plavix] 75 mg PO QDAY #30 tablet NIFEdipine XL [Procardia Xl] 30 mg PO Q12HR #60 tablet
--- NOTE | 2021-09-10 19:37 | Event Note ---
Date: 09/10/21 I called patient's sister Ms. Leslie Whelan at [phone] and discussed in detail patient's condition. Tests and reports. Treatment plan As well as discharge plan today, she had few questions I answered all of them. I also informed about patient's hemiplegia, risk of falls and strongly advised To prevent falls closely monitoring the patient as he cannot walk or get up and do anything for himself due to left hemiplegia. I also explained about patient's medication Eliquis[the blood thinner] and the risk of bleeding if he falls and gets hurt. She verbalized understanding I informed her that patient needs to go to his primary care physician as well as private neurologist per schedule. Ms. Whelan verbalized understanding. Discharge home with home health and equipment. I informed case management and patient's nurse about my conversation with patient's sister/caregiver.
[2021-09-10 20:48] VITALS: BP 106/82
== END 2021-09-10 21:04 | disposition home health service (06) | DRG 64 ==
LOC: ED 12:32 → 3A 16:01
PROVIDERS: ADMIT Internal Medicine; ATTEND Internal Medicine
DX: I63.9 Cerebral infarction, unspecified (principal); N17.0 Acute kidney failure with tubular necrosis; F17.213 Nicotine dependence, cigarettes, with withdrawal; E87.1 Hypo-osmolality and hyponatremia; G81.94 Hemiplegia, unspecified affecting left nondominant side; F10.10 Alcohol abuse, uncomplicated; N18.9 Chronic kidney disease, unspecified; I12.9 Hypertensive chronic kidney disease with stage 1 through stage 4 chronic kidney disease, or unspecified chronic kidney disease; Z82.49 Family history of ischemic heart disease and other diseases of the circulatory system; Z91.14 Patient's other noncompliance with medication regimen; I65.21 Occlusion and stenosis of right carotid artery
CPT/HCPCS: 36415; 70450; 70496; 70498; 70551; 71046; 80048; 80053; 80061; 81001; 82565; 82962; 83735; 84100; 84484; 85025; 85027; 85610; 85652; 85730; 86038; 93005; 93306; 93880; 99406; G0378; C8929; J0360; J1650; Q9967